=== PATIENT | female | born 1950 | race Caucasian/White ===

== ENCOUNTER 2019-03-06 16:10 | Emergency (ER) | payer OTHER ==
[2019-03-06] MEDS ORDERED: LIDOCAINE 1% W/EPI 1:100,000 MDV 20 ML VIAL ONE (16:37)
--- NOTE | 2019-03-06 16:58 | EDPHYS ---
Physician Documentation [facility] Name: Trina Diane Age: 68 yrs Sex: Female : 1950 Arrival Date: 03/06/2019 Time: 16:12 Bed 20 Private MD: Sabrina Emmanuel C ED Physician Ryland Rodriguez HPI: 03/06 16:55 This 68 yrs old Female presents to ER via Ambulatory with complaints of Thumb nh laceration. 16:55 Onset: The symptoms/episode began/occurred acutely, just prior to arrival. Associated nh signs and symptoms: The patient has no apparent associated signs or symptoms. The patient has not experienced similar symptoms in the past. The patient has not recently seen a physician. Patient sustained laceration to left thumb just prior to arrival while chopping vegetables. Bleeding controlled. Historical: - Allergies: 16:21 Tetanus Vaccines \T\ Toxoid; sv - PMHx: 16:21 None; sv - PSHx: 16:21 Hysterectomy; sv - Immunization history:: Last tetanus immunization: allergic to medication . - Social history:: Smoking status: Patient/guardian denies using tobacco. - Ebola Screening: : Patient negative for fever greater than or equal to 101.5 degrees Fahrenheit, and additional compatible Ebola Virus Disease symptoms Patient denies exposure to infectious person Patient denies travel to an Ebola-affected area in the 21 days before illness onset No symptoms or risks identified at this time. ROS: 16:55 Constitutional: Negative for fever, chills, and weight loss, Eyes: Negative for injury, nh pain, redness, and discharge, ENT: Negative for injury, pain, and discharge, Neck: Negative for injury, pain, and swelling, Cardiovascular: Negative for chest pain, palpitations, and edema, Respiratory: Negative for shortness of breath, cough, wheezing, and pleuritic chest pain, Abdomen/GI: Negative for abdominal pain, nausea, vomiting, diarrhea, and constipation, Back: Negative for injury and pain, : Negative for injury, bleeding, discharge, and swelling, MS/Extremity: Negative for injury and deformity, Neuro: Negative for headache, weakness, numbness, tingling, and seizure, Psych: Negative for depression, anxiety, suicide ideation, homicidal ideation, and hallucinations. 16:55 Skin: Positive for laceration(s). Exam: 16:55 Constitutional: This is a well developed, well nourished patient who is awake, alert, nh and in no acute distress. Head/Face: Normocephalic, atraumatic. Eyes: Pupils equal round and reactive to light, extra-ocular motions intact. Lids and lashes normal. Conjunctiva and sclera are non-icteric and not injected. Cornea within normal limits. Periorbital areas with no swelling, redness, or edema. ENT: Nares patent. No nasal discharge, no septal abnormalities noted. Tympanic membranes are normal and external auditory canals are clear. Oropharynx with no redness, swelling, or masses, exudates, or evidence of obstruction, uvula midline. Mucous membranes moist. Neck: Trachea midline, no thyromegaly or masses palpated, and no cervical lymphadenopathy. Supple, full range of motion without nuchal rigidity, or vertebral point tenderness. No Meningismus. Chest/axilla: Normal chest wall appearance and motion. Nontender with no deformity. No lesions are appreciated. Cardiovascular: Regular rate and rhythm with a normal S1 and S2. No gallops, murmurs, or rubs. Normal PMI, no JVD. No pulse deficits. Respiratory: Lungs have equal breath sounds bilaterally, clear to auscultation and percussion. No rales, rhonchi or wheezes noted. No increased work of breathing, no retractions or nasal flaring. Abdomen/GI: Soft, non-tender, with normal bowel sounds. No distension or tympany. No guarding or rebound. No evidence of tenderness throughout. Back: No spinal tenderness. No costovertebral tenderness. Full range of motion. MS/ Extremity: Pulses equal, no cyanosis. Neurovascular intact. Full, normal range of motion. Neuro: Awake and alert, GCS 15, oriented to person, place, time, and situation. Cranial nerves II-XII grossly intact. Motor strength 5/5 in all extremities. Sensory grossly intact. Cerebellar exam normal. Normal gait. 16:55 Skin: injury, laceration(s), the wound is approximately 1.5 cm(s), of the left thumb. Vital Signs: 16:22 BP 145 / 95; Pulse 90; Resp 18; Temp 98.4; Pulse Ox 96% ; Weight 93.89 kg; Height 5 ft. sv 8 in. (172.72 cm); Pain 2/10; 16:22 Body Mass Index 31.47 (93.89 kg, 172.72 cm) sv Laceration: 16:55 Wound Repair of 1.5cm ( 0.6in ) subcutaneous laceration to left thumb. Distal nh neuro/vascular/tendon intact. Anesthesia: Local anesthetic administered with 1 mls of 1% lidocaine w/ Epi. Wound prep: Moderate cleansing with betadine. Skin closed with 3 5-0 Prolene using interrupted sutures and sterile technique. Patient tolerated well. MDM: 16:24 Patient medically screened. nh 16:55 Data reviewed: vital signs, nurses notes, I have discussed the patient's in presentation/case with the attending Emergency Department Physician; and as a result, I will discharge patient. Counseling: I had a detailed discussion with the patient and/or guardian regarding: the historical points, exam findings, and any diagnostic results supporting the discharge/admit diagnosis, the need for outpatient follow up, to return to the emergency department if symptoms worsen or persist or if there are any questions or concerns that arise at home. Administered Medications: 16:49 Drug: Lidocaine-Epinephrine -1%: (1:100,000) 1 ml {Note: administered by JOSESITO Minor.} em Volume: 20 ml; Route: Infiltration; 17:02 Follow up: Response: No adverse reaction; Pain is decreased em Disposition: 03/07 07:20 Co-signature as Attending Physician, Ryland Rodriguez MD I agree with the assessment and kdr plan of care. Disposition: 03/06/19 16:57 Discharged to Home. Impression: Laceration without foreign body of left thumb with damage to nail. - Condition is Stable. - Discharge Instructions: Sutured Wound Care. - Prescriptions for Bactrim DS 800- 160 mg Oral Tablet - take 1 tablet by ORAL route every 12 hours for 10 days; 20 tablet. - Medication Reconciliation Form, Thank You Letter, Antibiotic Education, Prescription Opioid Use form. - Follow up: Private Physician; When: 2 - 3 days; Reason: Recheck today's complaints. - Problem is new. - Symptoms are unchanged. Signatures: Nevaeh Ugarte RN RN sv Rittger, Kevin, MD MD [facility] Mily Muniz, CAREER TRANSITION SPECIALIST CAREER TRANSITION SPECIALIST Porfirio Crenshaw, DYE FEEDER DYE FEEDER em Corrections: (The following items were deleted from the chart) 03/06 17:04 16:57 03/06/2019 16:57 Discharged to Home. Impression: Laceration without foreign body em of left thumb with damage to nail. Condition is Stable. Forms are Medication Reconciliation Form, Thank You Letter, Antibiotic Education, Prescription Opioid Use. Follow up: Private Physician; When: 2 - 3 days; Reason: Recheck today's complaints. Problem is new. Symptoms are unchanged. nh
--- NOTE | 2019-03-06 16:58 | ER ---
Nurse's Notes [facility] Name: Trina Diane Age: 68 yrs Sex: Female : 1950 Arrival Date: 03/06/2019 Time: 16:12 Bed 20 Private MD: Sabrina Emmanuel C Diagnosis: Laceration without foreign body of left thumb with damage to nail Presentation: 03/06 16:21 Presenting complaint: Patient states: left thumb laceration happened today while sv cutting corn. Transition of care: patient was not received from another setting of care. Onset of symptoms was March 06, 2019. Risk Assessment: Do you want to hurt yourself or someone else? Patient reports no desire to harm self or others. Care prior to arrival: None. 16:21 Method Of Arrival: Ambulatory sv 16:21 Acuity: ANNA 4 sv 16:30 Initial Sepsis Screen: Does the patient meet any 2 criteria? No. Patient's initial em sepsis screen is negative. Does the patient have a suspected source of infection? Yes: Skin breakdown/wound. Triage Assessment: 16:23 General: Appears in no apparent distress. uncomfortable, well developed, Behavior is sv calm, cooperative, appropriate for age. Pain: Complains of pain in left thumb Pain currently is 2 out of 10 on a pain scale. Neuro: Level of Consciousness is awake, alert, obeys commands, Oriented to person, place, time, situation, Moves all extremities. Respiratory: Respiratory effort is even, unlabored, Respiratory pattern is regular, symmetrical. Injury Description: Laceration sustained to left thumb was sustained less than 30 minutes ago. Historical: - Allergies: 16:21 Tetanus Vaccines \T\ Toxoid; sv - PMHx: 16:21 None; sv - PSHx: 16:21 Hysterectomy; sv - Immunization history:: Last tetanus immunization: allergic to medication . - Social history:: Smoking status: Patient/guardian denies using tobacco. - Ebola Screening: : Patient negative for fever greater than or equal to 101.5 degrees Fahrenheit, and additional compatible Ebola Virus Disease symptoms Patient denies exposure to infectious person Patient denies travel to an Ebola-affected area in the 21 days before illness onset No symptoms or risks identified at this time. Screenin:30 Abuse screen: Denies threats or abuse. Nutritional screening: No deficits noted. em Tuberculosis screening: No symptoms or risk factors identified. Fall Risk None identified. Assessment: 16:39 General: Appears in no apparent distress. comfortable, well groomed, well developed, em well nourished, Behavior is calm, cooperative. Pain: Complains of pain in left thumb Pain currently is 2 out of 10 on a pain scale. Pain began suddenly. Neuro: Level of Consciousness is awake, alert, obeys commands, Oriented to person, place, time, situation, Appropriate for age. Cardiovascular: Capillary refill < 3 seconds Patient's skin is warm and dry. Respiratory: Airway is patent Respiratory effort is even, unlabored, Respiratory pattern is regular, symmetrical. Derm: Wound noted left thumb Wound is cut left thumb while cutting corn. Injury Description: Laceration sustained to left thumb is clean, 0.5 to 2.5 cm long, not bleeding, was sustained 30-60 minutes ago. a small amount of bleeding noted at this time. Vital Signs: 16:22 BP 145 / 95; Pulse 90; Resp 18; Temp 98.4; Pulse Ox 96% ; Weight 93.89 kg; Height 5 ft. sv 8 in. (172.72 cm); Pain 2/10; 16:22 Body Mass Index 31.47 (93.89 kg, 172.72 cm) sv ED Course: 16:12 Patient arrived in ED. mr 16:12 Sabrina Emmanuel MD is Private Physician. mr 16:21 Triage completed. sv 16:22 Arm band placed on. sv 16:24 Mily Muniz FNP is PHCP. nh 16:24 Ryland Rodriguez MD is Attending Physician. nh 16:30 Patient has correct armband on for positive identification. Bed in low position. Call em light in reach. 16:34 Porfirio Olson LVN is Primary Nurse. em 17:02 Assist provider with laceration repair on left thumb that was 2.5 cm. or less using em sutures. Set up tray. Performed by Mily CORNELL Dressed with band aid, Patient tolerated well. Patient did not have IV access during this emergency room visit. Administered Medications: 16:49 Drug: Lidocaine-Epinephrine -1%: (1:100,000) 1 ml {Note: administered by JOSESITO Minor.} em Volume: 20 ml; Route: Infiltration; 17:02 Follow up: Response: No adverse reaction; Pain is decreased em Outcome: 16:57 Discharge ordered by . ny 17:02 Discharged to home ambulatory. em 17:02 Condition: good 17:02 Discharge instructions given to patient, family, Instructed on discharge instructions, follow up and referral plans. medication usage, wound care, Demonstrated understanding of instructions, follow-up care, medications, wound care, Prescriptions given X 1. 17:04 Patient left the ED. em Signatures: Nevaeh Ugarte RN RN Mily Muniz, SUPERVISOR TREE TRIMMING SUPERVISOR TREE TRIMMING ny Jacob, Ely OlsonPorfirio, COMPLEX DIRECTOR COMPLEX DIRECTOR em Corrections: (The following items were deleted from the chart) 16:23 16:22 Resp 18bpm; Temp 98.4F; 93.89 kg; Height 5 ft. 8 in.; BMI: 31.4; Pain 2/10; sv sv 16:23 16:22 Pulse 90bpm; Resp 18bpm; Pulse Ox 96%; Temp 98.4F; 93.89 kg; Height 5 ft. 8 in.; sv BMI: 31.4; Pain 2/10; sv 16:24 16:22 Pulse 90bpm; Resp 18bpm; Pulse Ox 96%; Temp 98.4F; 93.89 kg; Height 5 ft. 8 in.; sv BMI: 31.4; Pain 2/10; sv 17:06 17:02 No provider procedures requiring assistance completed. em em
[2019-03-06 17:09] VITALS: BP 145/95; TEMP 98.4; O2SAT 96
== END 2019-03-06 17:04 | disposition home or self-care (01) ==
LOC: ER 16:10
PROC: 0JQK0ZZ Repair Left Hand Subcutaneous Tissue and Fascia, Open Approach (ICD-10-PCS; principal; 2019-03-06)
DX: S61.112A Laceration without foreign body of left thumb with damage to nail, initial encounter (principal); W45.8XXA Other foreign body or object entering through skin, initial encounter; Y93.G3 Activity, cooking and baking; Y92.9 Unspecified place or not applicable; Z88.7 Allergy status to serum and vaccine
CPT/HCPCS: 99283

== ENCOUNTER 2019-06-18 18:03 | Emergency (ER) | payer OTHER ==
[2019-06-18 18:16] LABS: Absolute Lymphocytes (CBC) 1.4 K/uL (0.7-4.9); Basophils % 0.7 % (0-1.3); Hematocrit 45.5 % (36.0-45.0); Lymphocytes % 12.8 % (15.3-44.8); MPV 9.4 fL (7.6-11.3)
[2019-06-18 18:19] LABS: Protime INR 1.08
[2019-06-18 18:35] LABS: ALT/SGPT 24 U/L (12-78); AST/SGOT 16 U/L (15-37); Albumin 3.7 g/dL (3.4-5.0); Alkaline Phosphatase 98 U/L (45-117); BUN Blood Urea Nitrogen 15 mg/dL (7-18); Bicarbonate 29 mmol/L (21-32); Bilirubin Direct 0.1 mg/dL (0-0.2); Bilirubin Total 0.4 mg/dL (0.2-1.0); Glucose Level 98 mg/dL (74-106); NT PRO-BNP 457 pg/mL (<125); Potassium 3.3 mmol/L (3.5-5.1); Protein, Total 7.6 g/dL (6.4-8.2); Sodium Level 140 mmol/L (136-145); Troponin (Emerg Dept Use Only) < 0.02 ng/mL (0.0-0.045)
--- NOTE | 2019-06-18 19:05 | RAD REPORT ---
EXAM DESCRIPTION: RAD - Chest Single View - 06/18/2019 6:09 pm CLINICAL HISTORY: PALPITATIONS, shortness of breath COMPARISON: CHEST PA AND LAT 2 VIEW dated 05/19/2008 TECHNIQUE: AP portable chest image was obtained 06/18/2019 6:09 pm . FINDINGS: Lungs are clear. Heart and vasculature are normal. No measurable pleural effusion and no p neumothorax. No acute bony abnormality seen. No acute aortic findings suspected. IMPRESSION: No acute cardiopulmonary process.
[2019-06-18] MEDS ORDERED: POTASSIUM 25 MEQ EFFERV TAB ONE (20:15)
--- NOTE | 2019-06-18 20:48 | ER ---
Nurse's Notes [facility] Name: Trina Diane Age: 69 yrs Sex: Female : 1950 Arrival Date: 06/18/2019 Time: 17:45 Bed 3 Private MD: Diagnosis: Supraventricular tachycardia Presentation: 06/17 17:40 Chief complaint: Patient states: has been taking cold medication for past couple days, iw this morning woke up with palpitations, was seen at Dr. Emmanuel's office and sent to ER for evaluation for HR over 150. Risk Assessment: Do you want to hurt yourself or someone else? Patient reports no desire to harm self or others. 17:40 Method Of Arrival: Wheelchair iw 17:40 Acuity: ANNA 2 iw 18:54 Coronavirus screen: The patient has NOT traveled to a country currently being monitored jl7 by the [facility] within the last 14 days. Proceed with normal triage procedures. Ebola Screen: No symptoms or risks identified at this time. Initial Sepsis Screen: Does the patient meet any 2 criteria? No. Patient's initial sepsis screen is negative. Does the patient have a suspected source of infection? No. Patient's initial sepsis screen is negative. Onset of symptoms was June 18, 2019. Care prior to arrival: None. Historical: - Allergies: 17:46 Tetanus Vaccines \T\ Toxoid; iw - Home Meds: 17:46 Synthroid 300 mcg Oral tab 1 tab once daily [Active]; iw - PMHx: 17:46 Hypothyroidism; iw - PSHx: 17:46 Hysterectomy; iw - Immunization history:: Adult Immunizations up to date. - Social history:: Smoking status: Patient denies any tobacco usage or history of. Screenin:02 Abuse screen: Denies threats or abuse. Denies injuries from another. Nutritional jl7 screening: No deficits noted. Tuberculosis screening: No symptoms or risk factors identified. Fall Risk None identified. Assessment: 18:02 General: Appears in no apparent distress. uncomfortable, Behavior is calm, cooperative, jl7 appropriate for age. Pain: Denies pain. Neuro: Level of Consciousness is awake, alert, obeys commands, Oriented to person, place, time, situation. Cardiovascular: Reports palpitations, Patient's skin is warm and dry. Rhythm is SVT. Respiratory: Airway is patent Respiratory effort is even, unlabored, Respiratory pattern is regular, symmetrical. Derm: Skin is pink, warm \T\ dry. 19:13 Reassessment: Patient appears in no apparent distress at this time. Patient denies pain jd3 at this time. Patient states feeling better. Patient states symptoms have improved. General: Appears in no apparent distress. comfortable, well groomed, Behavior is calm, cooperative, appropriate for age. Pain: Denies pain. Neuro: Level of Consciousness is awake, alert, obeys commands, Oriented to person, place, time, situation. Cardiovascular: Heart tones S1 S2 present Capillary refill < 3 seconds in bilateral Patient's skin is warm and dry. Rhythm is sinus rhythm. Respiratory: Airway is patent Respiratory effort is even, unlabored, Respiratory pattern is regular, symmetrical, Breath sounds are clear bilaterally. GI: Abdomen is flat, non-distended, Bowel sounds present X 4 quads. : No deficits noted. No signs and/or symptoms were reported regarding the genitourinary system. EENT: No deficits noted. No signs and/or symptoms were reported regarding the EENT system. Derm: Skin is intact, is healthy with good turgor, Skin is dry, Skin is normal. Musculoskeletal: Circulation, motion, and sensation intact. Range of motion: intact in all extremities. 20:30 Reassessment: Patient appears in no apparent distress at this time. No changes from jd3 previously documented assessment. Patient and/or family updated on plan of care and expected duration. Pain level reassessed. Patient is alert, oriented x 3, equal unlabored respirations, skin warm/dry/pink. awaiting results of second troponin and disposition. Patient denies pain at this time. 21:11 Reassessment: Patient appears in no apparent distress at this time. No changes from jd3 previously documented assessment. Patient and/or family updated on plan of care and expected duration. Pain level reassessed. Patient is alert, oriented x 3, equal unlabored respirations, skin warm/dry/pink. verbalized understanding of discharge. even and steady gait. Patient denies pain at this time. Vital Signs: 17:46 BP 170 / 115; Pulse 158; Resp 20 S; Pulse Ox 100% on R/A; iw 18:52 BP 158 / 80; Pulse 84; Resp 16 S; Pulse Ox 100% on R/A; jl7 19:30 BP 134 / 69; Pulse 87; Resp 17; Pulse Ox 100% on R/A; Pain 0/10; jd3 19:58 Temp 98.7(TE); rv 20:31 BP 139 / 70; Pulse 88; Resp 18; Pulse Ox 100% on R/A; Pain 0/10; jd3 21:13 BP 110 / 57; Pulse 89; Resp 15; Temp 98.8; Pulse Ox 100% on R/A; Pain 0/10; jd3 ED Course: 17:45 Patient arrived in ED. iw 17:45 Patient has correct armband on for positive identification. Placed in gown. Bed in low jl7 position. Call light in reach. Side rails up X 1. steel chipper on. Pulse ox on. NIBP on. 17:52 Triage completed. iw 17:53 Ryland Rodriguez MD is Attending Physician. kdr 17:57 David Smalls RN is Primary Nurse. jl7 18:01 Arm band placed on right wrist. jl7 18:04 Warm blanket given. jl7 18:04 Initial lab(s) drawn, by me, sent to lab. Inserted saline lock: 18 gauge in left jl7 antecubital area, using aseptic technique. Blood collected. 18:10 XRAY Chest (1 view) In Process Unspecified. EDMS 20:46 Tyrell Emmanuel MD is Referral Physician. tw4 21:14 No provider procedures requiring assistance completed. IV discontinued, No jd3 redness/swelling at site. Pressure dressing applied. Administered Medications: 18:04 Drug: NS 0.9% 1000 ml Route: IV; Rate: 1 bolus; Site: left antecubital; jl7 18:50 Follow up: Response: No adverse reaction; IV Status: Completed infusion; IV Intake: jl7 1000ml 20:14 Drug: Potassium Effervescent Tablet 25 mEq Route: PO; jd3 20:27 Follow up: Response: No adverse reaction jd3 Intake: 18:50 IV: 1000ml; Total: 1000ml. jl7 Outcome: 20:47 Discharge ordered by . tw4 21:15 Discharged to home ambulatory, with family. jd3 21:15 Condition: stable 21:15 Discharge instructions given to patient, Instructed on discharge instructions, follow up and referral plans. Demonstrated understanding of instructions, follow-up care. 21:17 Patient left the ED. jd3 Signatures: Dispatcher [employer] EDMS Ryland Rodriguez MD MD kdr Savannah Eastman RN ADRAIN iw David Smalls RN RN jl7 Salazar Cast RN RN jd3 Franklyn House MD MD tw4 Reddy Ward RN RN rv
--- NOTE | 2019-06-18 20:48 | EDPHYS ---
Physician Documentation [facility] Name: Trina Diane Age: 69 yrs Sex: Female : 1950 Arrival Date: 06/18/2019 Time: 17:45 Bed 3 Private MD: ED Physician Ryland Rodriguez HPI: 06/17 18:24 This 69 yrs old Female presents to ER via Wheelchair with complaints of kdr Palpitations. 18:24 The patient presents with a history of heart racing. Context: The symptoms occur at kdr rest. Onset: The symptoms/episode began/occurred suddenly, this morning. Duration: The patient or guardian reports a single episode, that is still ongoing. Modifying factors: The symptoms are aggravated by nothing. The symptoms are alleviated by nothing. Associated signs and symptoms: The patient has no apparent associated signs or symptoms. Severity of symptoms: At their worst the symptoms were moderate in the emergency department the symptoms are unchanged. The patient has not experienced similar symptoms in the past. The patient was sent from Dr. Emmanuel's office. The patient had been taking OTC decongestants - Sudafed (pseudoephedrine). Her last dose was this morning. Historical: - Allergies: 17:46 Tetanus Vaccines \T\ Toxoid; iw - Home Meds: 17:46 Synthroid 300 mcg Oral tab 1 tab once daily [Active]; iw - PMHx: 17:46 Hypothyroidism; iw - PSHx: 17:46 Hysterectomy; iw - Immunization history:: Adult Immunizations up to date. - Social history:: Smoking status: Patient denies any tobacco usage or history of. ROS: 18:26 Constitutional: Negative for fever, chills, and weight loss, Eyes: Negative for injury, kdr pain, redness, and discharge, ENT: Negative for injury, pain, and discharge, Neck: Negative for injury, pain, and swelling, Respiratory: Negative for shortness of breath, cough, wheezing, and pleuritic chest pain, Abdomen/GI: Negative for abdominal pain, nausea, vomiting, diarrhea, and constipation, Back: Negative for injury and pain, : Negative for injury, bleeding, discharge, and swelling, MS/Extremity: Negative for injury and deformity, Skin: Negative for injury, rash, and discoloration, Neuro: Negative for headache, weakness, numbness, tingling, and seizure activity. Psych: Negative for depression, anxiety, suicide ideation, homicidal ideation, and hallucinations, Allergy/Immunology: Negative for hives, rash, and allergies, Endocrine: Negative for neck swelling, polydipsia, polyuria, polyphagia, and marked weight changes, Hematologic/Lymphatic: Negative for swollen nodes, abnormal bleeding, and unusual bruising. 18:26 Cardiovascular: Positive for palpitations, Negative for chest pain, edema, orthopnea, paroxysmal nocturnal dyspnea. Exam: 18:26 Constitutional: This is a well developed, well nourished patient who is awake, alert, kdr and in no acute distress. Head/Face: Normocephalic, atraumatic. Eyes: Pupils equal round and reactive to light, extra-ocular motions intact. Lids and lashes normal. Conjunctiva and sclera are non-icteric and not injected. Cornea within normal limits. Periorbital areas with no swelling, redness, or edema. Neck: Trachea midline, no thyromegaly or masses palpated, and no cervical lymphadenopathy. Supple, full range of motion without nuchal rigidity, or vertebral point tenderness. No Meningismus. Chest/axilla: Normal chest wall appearance and motion. Nontender with no deformity. No lesions are appreciated. Respiratory: Lungs have equal breath sounds bilaterally, clear to auscultation and percussion. No rales, rhonchi or wheezes noted. No increased work of breathing, no retractions or nasal flaring. Abdomen/GI: Soft, non-tender, with normal bowel sounds. No distension or tympany. No guarding or rebound. No evidence of tenderness throughout. Back: No spinal tenderness. No costovertebral tenderness. Full range of motion. Skin: Warm, dry with normal turgor. Normal color with no rashes, no lesions, and no evidence of cellulitis. MS/ Extremity: Pulses equal, no cyanosis. Neurovascular intact. Full, normal range of motion. Neuro: Awake and alert, GCS 15, oriented to person, place, time, and situation. Cranial nerves II-XII grossly intact. Motor strength 5/5 in all extremities. Sensory grossly intact. Cerebellar exam normal. Normal gait. Psych: Awake, alert, with orientation to person, place and time. Behavior, mood, and affect are within normal limits. 18:26 Cardiovascular: Rate: tachycardic, actual rate is 150 bpm, Rhythm: regular, Pulses: no pulse deficits are appreciated, Heart sounds: normal, Edema: is not appreciated. Vital Signs: 17:46 BP 170 / 115; Pulse 158; Resp 20 S; Pulse Ox 100% on R/A; iw 18:52 BP 158 / 80; Pulse 84; Resp 16 S; Pulse Ox 100% on R/A; jl7 19:30 BP 134 / 69; Pulse 87; Resp 17; Pulse Ox 100% on R/A; Pain 0/10; jd3 19:58 Temp 98.7(TE); rv 20:31 BP 139 / 70; Pulse 88; Resp 18; Pulse Ox 100% on R/A; Pain 0/10; jd3 21:13 BP 110 / 57; Pulse 89; Resp 15; Temp 98.8; Pulse Ox 100% on R/A; Pain 0/10; jd3 MDM: 18:26 Data reviewed: vital signs, nurses notes. kdr 19:23 Patient medically screened. tw4 06/17 17:54 Order name: Basic Metabolic Panel [facility] / 17:54 Order name: CBC with Diff [facility] 06/17 17:54 Order name: LFT's kdr / 17:54 Order name: Magnesium kdr 06/17 17:54 Order name: NT PRO-BNP [facility] / 17:54 Order name: PT-INR kdr / 17:54 Order name: Troponin (emerg Dept Use Only) kdr / 17:54 Order name: XRAY Chest (1 view) kdr / 17:54 Order name: EKG; Complete Time: 18:08 kdr / 17:54 Order name: Cardiac monitoring; Complete Time: 17:57 kdr / 17:54 Order name: EKG - Nurse/Tech; Complete Time: 17:57 kdr / 19:53 Order name: Troponin (emerg Dept Use Only) jd3 03/ 17:54 Order name: IV Saline Lock; Complete Time: 17:57 kdr / 17:54 Order name: Labs collected and sent; Complete Time: 17:57 kdr / 17:54 Order name: O2 Per Protocol; Complete Time: 17:57 kdr / 17:54 Order name: O2 Sat Monitoring; Complete Time: 17:57 kdr Administered Medications: 18:04 Drug: NS 0.9% 1000 ml Route: IV; Rate: 1 bolus; Site: left antecubital; jl7 18:50 Follow up: Response: No adverse reaction; IV Status: Completed infusion; IV Intake: jl7 1000ml 20:14 Drug: Potassium Effervescent Tablet 25 mEq Route: PO; jd3 20:27 Follow up: Response: No adverse reaction jd3 Disposition: 06/18/19 20:47 Discharged to Home. Impression: Supraventricular tachycardia. - Condition is Stable. - Discharge Instructions: Holter Monitoring, Palpitations, Paroxysmal Supraventricular Tachycardia, Hypokalemia. - Medication Reconciliation Form, Thank You Letter, Antibiotic Education, Prescription Opioid Use form. - Follow up: Tyrell Emmanuel MD; When: Upon discharge from the Emergency Department; Reason: Recheck today's complaints, Continuance of care, Re-evaluation by your physician. - Problem is new. - Symptoms have improved. Signatures: Dispatcher [employer] EDMS Ryland Rodriguez MD MD kdr Savannah Eastman RN RN iw David Smalls RN RN jl7 Salazar Cast RN RN jFranklyn Walden MD MD tw4 Corrections: (The following items were deleted from the chart) 20:47 20:47 06/18/2019 20:47 Discharged to Home. Impression: Supraventricular tachycardia. tw4 Condition is Stable. Forms are Medication Reconciliation Form, Thank You Letter, Antibiotic Education, Prescription Opioid Use. Follow up: Tyrell Emmanuel; When: Upon discharge from the Emergency Department; Reason: Recheck today's complaints, Continuance of care, Re-evaluation by your physician. tw4 21:17 20:47 06/18/2019 20:47 Discharged to Home. Impression: Supraventricular tachycardia. jd3 Condition is Stable. Forms are Medication Reconciliation Form, Thank You Letter, Antibiotic Education, Prescription Opioid Use. Follow up: Tyrell Emmanuel; When: Upon discharge from the Emergency Department; Reason: Recheck today's complaints, Continuance of care, Re-evaluation by your physician. Problem is new. Symptoms have improved. tw4
[2019-06-18 21:35] VITALS: O2SAT 100
[2019-06-18 21:38] VITALS: BP 110/57; TEMP 98.8
--- NOTE | 2019-06-19 13:45 | EKG ---
Test Date: 2019-06-18 Test Time: 17:46:27 First Assistant: RORY MEASUREMENT RESULTS: Intervals: Rate: 158 HI: QRSD: 66 QT: 300 QTc: 486 Gantt: P: HI: QRS: 21 T: 60 INTERPRETIVE STATEMENTS: Sinus tachycardia with occasional premature ventricular complexes Anterior infarct, age undetermined Abnormal ECG Compared to ECG 01/17/2011 10:02:38 Ventricular premature complex(es) now present Myocardial infarct finding now present Sinus rhythm no longer present Electronically Signed On 06-19-19 13:44:55 SUBCONTRACT MANAGER by Boo Falcon
== END 2019-06-18 21:17 | disposition home or self-care (01) ==
LOC: ER 18:03
DX: I47.1 Supraventricular tachycardia (principal); E03.9 Hypothyroidism, unspecified; Z88.7 Allergy status to serum and vaccine
CPT/HCPCS: 36415; 71045; 80048; 80076; 83735; 83880; 84484; 85025; 85610; 93005; 96360; 99284

== ENCOUNTER 2019-08-29 18:59 | Emergency (ER) | payer OTHER ==
[2019-08-29] MEDS ORDERED: NA CHLORIDE 0.9% 1,000 ML ONE (19:46)
[2019-08-29 19:47] LABS: Basophils % 1.2 % (0-1.3); Hematocrit 44.3 % (36.0-45.0); Lymphocytes % 19.1 % (15.3-44.8); MPV 8.9 fL (7.6-11.3)
[2019-08-29 20:11] LABS: ALT/SGPT 26 U/L (12-78); AST/SGOT 13 U/L (15-37); Albumin 3.4 g/dL (3.4-5.0); Alkaline Phosphatase 89 U/L (45-117); BUN Blood Urea Nitrogen 22 mg/dL (7-18); Bicarbonate 27 mmol/L (21-32); Bilirubin Direct 0.1 mg/dL (0-0.2); Bilirubin Total 0.5 mg/dL (0.2-1.0); Glucose Level 111 mg/dL (74-106); Magnesium 2.1 mg/dL (1.8-2.4); NT PRO-BNP 199 pg/mL (<125); Potassium 3.8 mmol/L (3.5-5.1); Protein, Total 6.8 g/dL (6.4-8.2); Sodium Level 143 mmol/L (136-145); Thyroid Stimulating Hormone 0.005 uIU/mL (0.360-3.740); Troponin (Emerg Dept Use Only) < 0.02 ng/mL (0.0-0.045)
[2019-08-29] MEDS ORDERED: METOPROLOL TAR 50 MG TAB ONE (20:38)
--- NOTE | 2019-08-29 21:08 | RAD REPORT ---
EXAM DESCRIPTION: RAD - Chest Single View - 08/29/2019 7:58 pm CLINICAL HISTORY: PALPITATIONS COMPARISON: Portable chest June 18, 2019 TECHNIQUE: AP portable chest image was obtained 08/29/2019 7:58 pm . FINDINGS: No focal lung parenchymal process. Interstitial pattern matches comparison. Heart and vasc ulature are normal. No measurable pleural effusion and no pneumothorax. No acute bony abnormality see n. No acute aortic findings suspected. IMPRESSION: No acute cardiopulmonary process. No significant interval change.
[2019-08-29 21:12] LABS: Urine Blood 1+ (NEG); Urine Glucose NEGATIVE (NEG); Urine Protein NEGATIVE (NEG); Urine Specific Gravity 1.025 (1.005-1.030)
--- NOTE | 2019-08-29 21:50 | EDPHYS ---
Physician Documentation [facility] Name: Trina Diane Age: 69 yrs Sex: Female : 1950 Arrival Date: 08/29/2019 Time: 19:00 Bed 8 Private MD: ED Physician Tim Cameron HPI: 08/28 19:28 This 69 yrs old Female presents to ER via Wheelchair with complaints of SVT. josette 19:28 The patient presents with a history of heart racing. Context: The symptoms occur at [facility] rest. Onset: The symptoms/episode began/occurred just prior to arrival. Duration: The patient or guardian reports a single episode, that is still ongoing, and unchanged. Modifying factors: The symptoms are aggravated by nothing. The symptoms are alleviated by nothing. Associated signs and symptoms: The patient has no apparent associated signs or symptoms. Severity of symptoms: At their worst the symptoms were mild in the emergency department the symptoms are unchanged. The patient has not experienced similar symptoms in the past. Historical: - Allergies: 19:19 Tetanus Vaccines \T\ Toxoid; ca1 - Home Meds: 19:19 Synthroid 300 mcg Oral tab 1 tab once daily [Active]; ca1 - PMHx: 19:19 Hypothyroidism; ca1 - PSHx: 19:19 Hysterectomy; ca1 - Immunization history:: Adult Immunizations up to date. - Social history:: Smoking status: Patient denies any tobacco usage or history of. - Family history:: not pertinent. ROS: 19:28 Constitutional: Negative for fever, chills, and weight loss, Eyes: Negative for injury, josette pain, redness, and discharge, ENT: Negative for injury, pain, and discharge, Neck: Negative for injury, pain, and swelling, Respiratory: Negative for shortness of breath, cough, wheezing, and pleuritic chest pain, Abdomen/GI: Negative for abdominal pain, nausea, vomiting, diarrhea, and constipation, Back: Negative for injury and pain, : Negative for injury, bleeding, discharge, and swelling, MS/Extremity: Negative for injury and deformity, Skin: Negative for injury, rash, and discoloration, Neuro: Negative for headache, weakness, numbness, tingling, and seizure, Psych: Negative for depression, anxiety, suicide ideation, homicidal ideation, and hallucinations, Allergy/Immunology: Negative for hives, rash, and allergies, Endocrine: Negative for neck swelling, polydipsia, polyuria, polyphagia, and marked weight changes, Hematologic/Lymphatic: Negative for swollen nodes, abnormal bleeding, and unusual bruising. 19:28 Cardiovascular: Positive for palpitations. Exam: 19:28 Constitutional: This is a well developed, well nourished patient who is awake, alert, josette and in no acute distress. Head/Face: Normocephalic, atraumatic. Eyes: Pupils equal round and reactive to light, extra-ocular motions intact. Lids and lashes normal. Conjunctiva and sclera are non-icteric and not injected. Cornea within normal limits. Periorbital areas with no swelling, redness, or edema. ENT: Nares patent. No nasal discharge, no septal abnormalities noted. Tympanic membranes are normal and external auditory canals are clear. Oropharynx with no redness, swelling, or masses, exudates, or evidence of obstruction, uvula midline. Mucous membranes moist. Neck: Trachea midline, no thyromegaly or masses palpated, and no cervical lymphadenopathy. Supple, full range of motion without nuchal rigidity, or vertebral point tenderness. No Meningismus. Chest/axilla: Normal chest wall appearance and motion. Nontender with no deformity. No lesions are appreciated. Respiratory: Lungs have equal breath sounds bilaterally, clear to auscultation and percussion. No rales, rhonchi or wheezes noted. No increased work of breathing, no retractions or nasal flaring. Abdomen/GI: Soft, non-tender, with normal bowel sounds. No distension or tympany. No guarding or rebound. No evidence of tenderness throughout. Back: No spinal tenderness. No costovertebral tenderness. Full range of motion. Female : Normal external genitalia. Skin: Warm, dry with normal turgor. Normal color with no rashes, no lesions, and no evidence of cellulitis. MS/ Extremity: Pulses equal, no cyanosis. Neurovascular intact. Full, normal range of motion. Neuro: Awake and alert, GCS 15, oriented to person, place, time, and situation. Cranial nerves II-XII grossly intact. Motor strength 5/5 in all extremities. Sensory grossly intact. Cerebellar exam normal. Normal gait. Psych: Awake, alert, with orientation to person, place and time. Behavior, mood, and affect are within normal limits. 19:28 Cardiovascular: Rate: tachycardic, Rhythm: regular, Pulses: no pulse deficits are appreciated, Heart sounds: normal, Edema: is not appreciated, JVD: is not appreciated. 19:31 ECG was reviewed by the Attending Physician. josette 21:41 Skin: cellulitis, that is mild, on the left subscapular area. josette Vital Signs: 19:17 BP 152 / 102; Pulse 144; Resp 16 S; Temp 98.6(TE); Pulse Ox 99% on R/A; Weight 92.99 kg ca1 (R); Height 5 ft. 8 in. (172.72 cm) (R); Pain 0/10; 19:58 BP 146 / 84; Pulse 87; Resp 18; Pulse Ox 98% on R/A; Pain 0/10; mg2 20:53 BP 136 / 73; Pulse 71; Resp 18; Pulse Ox 100% on R/A; mg2 19:17 Body Mass Index 31.17 (92.99 kg, 172.72 cm) ca1 MDM: 19:13 Patient medically screened. josette 19:30 Differential diagnosis: arrythmia, dehydration, stress disorder. Data reviewed: vital josette signs, nurses notes, lab test result(s), EKG, radiologic studies, plain films. Data interpreted: business support manager: rate is 144 beats/min. Test interpretation: by ED physician or midlevel provider: ECG, plain radiologic studies. Counseling: I had a detailed discussion with the patient and/or guardian regarding: the historical points, exam findings, and any diagnostic results supporting the discharge/admit diagnosis, lab results, radiology results. 21:41 ED course: discussed follow up dr Emmanuel, decrease Synthroid to 200 mcg daily, add josette bactrim. 08/28 19:28 Order name: Basic Metabolic Panel; Complete Time: 20:23 josette 08/28 19:28 Order name: CBC with Diff; Complete Time: 20:23 josette 08/28 19:28 Order name: LFT's; Complete Time: 20:23 josette 08/28 19:28 Order name: Magnesium; Complete Time: 20:23 josette 08/28 19:28 Order name: NT PRO-BNP; Complete Time: 20:23 josette 08/28 19:28 Order name: Troponin (emerg Dept Use Only); Complete Time: 20:23 [facility] 08/28 19:28 Order name: XRAY Chest (1 view); Complete Time: 21:40 [facility] 08/28 19:28 Order name: EKG; Complete Time: 19:29 [facility] 08/28 19:28 Order name: TSH; Complete Time: 20:23 [facility] 08/28 19:28 Order name: Urine Culture [facility] 08/28 19:28 Order name: D-Dimer; Complete Time: 20:23 [facility] 08/28 20:33 Order name: Urine Dipstick--Ancillary (enter results); Complete Time: 21:40 ar5 08/28 19:28 Order name: Cardiac monitoring; Complete Time: 19:35 [facility] 08/28 19:28 Order name: EKG - Nurse/Tech; Complete Time: 19:35 [facility] 08/28 19:28 Order name: IV Saline Lock; Complete Time: 19:35 [facility] 08/28 19:28 Order name: Labs collected and sent; Complete Time: 19:35 [facility] 08/28 19:28 Order name: O2 Per Protocol; Complete Time: 19:35 [facility] 08/28 19:28 Order name: O2 Sat Monitoring; Complete Time: 19:35 [facility] 08/28 19:28 Order name: Urine Dipstick-Ancillary (obtain specimen); Complete Time: 19:58 josette EC:31 Rate is 140 beats/min. Rhythm is regular. QRS [place] is Normal. [place] interval is normal. josette QRS interval is normal. QT interval is normal. No Q waves. T waves are Normal. No ST changes noted. Clinical impression: Sinus tachycardia and No evidence of ischemia. Interpreted by me. Reviewed by me. Administered Medications: 19:57 Drug: NS 0.9% 1000 ml Route: IV; Rate: 1 bolus; Site: right antecubital; mg2 21:52 Follow up: Response: No adverse reaction; IV Status: Completed infusion; IV Intake: mg2 1000ml 20:38 Drug: Lopressor (metoprolol TARTRATE) 50 mg Route: PO; mg2 21:52 Follow up: Response: No adverse reaction mg2 Disposition: 08/29/19 21:49 Discharged to Home. Impression: Tachycardia, unspecified, Thyrotoxicosis [hyperthyroidism], Cellulitis and acute lymphangitis of trunk - small, left thoracic area. - Condition is Stable. - Discharge Instructions: Cellulitis, Adult, Hyperthyroidism, Cellulitis, Adult, [id number], Sinus Tachycardia. - Prescriptions for Synthroid 200 mcg Oral tablet - take 1 tablet by ORAL route once daily; 20 tablet. Bactrim DS 800- 160 mg Oral Tablet - take 1 tablet by ORAL route every 12 hours for 10 days; 20 tablet. - Medication Reconciliation Form, Thank You Letter, Antibiotic Education, Prescription Opioid Use form. - Follow up: Sabrina Emmanuel MD; When: 2 - 3 days; Reason: Recheck today's complaints, Continuance of care, Re-evaluation by your physician. - Problem is new. - Symptoms have improved. Signatures: Dispatcher [employer] EDPA Tim Cameron MD MD cha Gardose, Michele, RN RN mg2 Smiley Duque RN RN ca1 Corrections: (The following items were deleted from the chart) 22:15 21:49 08/29/2019 21:49 Discharged to Home. Impression: Tachycardia, unspecified; mg2 Thyrotoxicosis [hyperthyroidism]; Cellulitis and acute lymphangitis of trunk - small, left thoracic area. Condition is Stable. Forms are Medication Reconciliation Form, Thank You Letter, Antibiotic Education, Prescription Opioid Use. Follow up: Sabrina Emmanuel; When: 2 - 3 days; Reason: Recheck today's complaints, Continuance of care, Re-evaluation by your physician. Problem is new. Symptoms have improved. josette
--- NOTE | 2019-08-29 21:50 | ER ---
Nurse's Notes [facility] Name: Trina Diane Age: 69 yrs Sex: Female : 1950 Arrival Date: 08/29/2019 Time: 19:00 Bed 8 Private MD: Diagnosis: Tachycardia, unspecified;Thyrotoxicosis [hyperthyroidism];Cellulitis and acute lymphangitis of trunk-small, left thoracic area Presentation: 08/28 19:17 Chief complaint: Patient states: Palpitations started 20 minutes ago HR at home was ca1 159, BP at 150/100. History of SVT. Denies N/V/dizziness/lightheadedness. Denies chest pain, SOB. Coronavirus screen: Proceed with normal triage. Patient denies a cough. Patient denies shortness of breath or difficulty breathing. Patient denies measured and/or subjective temperature greater than 100.4F prior to today's visit. Patient denies travel on a cruise ship or to a country the [facility] currently lists as an affected area. Patient denies contact with known and/or suspected case of COVID-19. Ebola Screen: Patient negative for fever greater than or equal to 101.5 degrees Fahrenheit, and additional compatible Ebola Virus Disease symptoms Patient denies exposure to infectious person. Patient denies travel to an Ebola-affected area in the 21 days before illness onset. No symptoms or risks identified at this time. Initial Sepsis Screen: Does the patient meet any 2 criteria? No. Patient's initial sepsis screen is negative. Does the patient have a suspected source of infection? No. Patient's initial sepsis screen is negative. Risk Assessment: Do you want to hurt yourself or someone else? Patient reports no desire to harm self or others. Onset of symptoms was August 29, 2019. 19:17 Method Of Arrival: Wheelchair ca1 19:17 Acuity: ANNA 2 ca1 Historical: - Allergies: 19:19 Tetanus Vaccines \T\ Toxoid; ca1 - Home Meds: 19:19 Synthroid 300 mcg Oral tab 1 tab once daily [Active]; ca1 - PMHx: 19:19 Hypothyroidism; ca1 - PSHx: 19:19 Hysterectomy; ca1 - Immunization history:: Adult Immunizations up to date. - Social history:: Smoking status: Patient denies any tobacco usage or history of. - Family history:: not pertinent. Screenin:00 Abuse screen: Denies threats or abuse. Denies injuries from another. Nutritional mg2 screening: No deficits noted. Tuberculosis screening: No symptoms or risk factors identified. Fall Risk IV access (20 points). Assessment: 19:58 General: Appears in no apparent distress. comfortable, Behavior is calm, cooperative. mg2 Pain: Denies pain. Neuro: Level of Consciousness is awake, alert, obeys commands, Oriented to person, place, time, situation. Cardiovascular: Capillary refill < 3 seconds Patient's skin is warm and dry. Cardiovascular: Reports None lightheadedness, palpitations. Respiratory: Airway is patent Respiratory effort is even, unlabored, Respiratory pattern is regular, symmetrical. GI: No signs and/or symptoms were reported involving the gastrointestinal system. : No signs and/or symptoms were reported regarding the genitourinary system. EENT: No signs and/or symptoms were reported regarding the EENT system. Derm: Skin is intact, is healthy with good turgor, Skin is pink, warm \T\ dry. normal. Musculoskeletal: Circulation, motion, and sensation intact. Capillary refill < 3 seconds. 20:53 Reassessment: Patient appears in no apparent distress at this time. Patient and/or mg2 family updated on plan of care and expected duration. Pain level reassessed. Patient is alert, oriented x 3, equal unlabored respirations, skin warm/dry/pink. Vital Signs: 19:17 BP 152 / 102; Pulse 144; Resp 16 S; Temp 98.6(TE); Pulse Ox 99% on R/A; Weight 92.99 kg ca1 (R); Height 5 ft. 8 in. (172.72 cm) (R); Pain 0/10; 19:58 BP 146 / 84; Pulse 87; Resp 18; Pulse Ox 98% on R/A; Pain 0/10; mg2 20:53 BP 136 / 73; Pulse 71; Resp 18; Pulse Ox 100% on R/A; mg2 19:17 Body Mass Index 31.17 (92.99 kg, 172.72 cm) ca1 ED Course: 19:00 Patient arrived in ED. as 19:13 Tim Cameron MD is Attending Physician. josette 19:19 Triage completed. ca1 19:19 Arm band placed on right wrist. EKG completed in triage. Results shown to MD. ca1 19:30 Inserted saline lock: 20 gauge in right antecubital area, using aseptic technique. mg2 Blood collected. 19:34 Abad May, RN is Primary Nurse. mg2 19:58 XRAY Chest (1 view) In Process Unspecified. EDMS 19:58 No provider procedures requiring assistance completed. mg2 20:01 Patient has correct armband on for positive identification. classroom monitor on. Pulse mg2 ox on. NIBP on. Door closed. Warm blanket given. 21:47 Sabrina Emmanuel MD is Referral Physician. josette 22:07 IV discontinued, intact, bleeding controlled, No redness/swelling at site. Pressure mg2 dressing applied. Administered Medications: 19:57 Drug: NS 0.9% 1000 ml Route: IV; Rate: 1 bolus; Site: right antecubital; mg2 21:52 Follow up: Response: No adverse reaction; IV Status: Completed infusion; IV Intake: mg2 1000ml 20:38 Drug: Lopressor (metoprolol TARTRATE) 50 mg Route: PO; mg2 21:52 Follow up: Response: No adverse reaction mg2 Intake: 21:52 IV: 1000ml; Total: 1000ml. mg2 Outcome: 21:49 Discharge ordered by . josette 22:08 Discharged to home ambulatory. mg2 22:08 Condition: stable 22:08 Discharge instructions given to patient, Instructed on discharge instructions, follow up and referral plans. medication usage, Demonstrated understanding of instructions, follow-up care, medications, Prescriptions given X 2. 22:15 Patient left the ED. mg2 Signatures: Dispatcher [employer] EDTim Arana MD MD cha Martinez, Amelia as Abad May, RN RN mg2 Smiley Duque RN RN ca1
[2019-08-29 22:54] VITALS: BP 146/84; O2SAT 98
--- NOTE | 2019-08-30 07:12 | EKG ---
Test Date: 2019-08-29 Test Time: 19:15:47 Pound Attendant: TL MEASUREMENT RESULTS: Intervals: Rate: 140 OH: 150 QRSD: 72 QT: 258 QTc: 393 Ailey: P: 41 OH: 150 QRS: -2 T: 1 INTERPRETIVE STATEMENTS: Sinus tachycardia Possible Left atrial enlargement Anterior infarct, age undetermined Abnormal ECG Compared to ECG 06/18/2019 17:46:27 Ventricular premature complex(es) no longer present Myocardial infarct finding still present Electronically Signed On 08-30-19 07:10:50 CDT by Garo Payne
== END 2019-08-29 22:15 | disposition home or self-care (01) ==
LOC: ER 18:59
DX: R00.0 Tachycardia, unspecified (principal); E05.90 Thyrotoxicosis, unspecified without thyrotoxic crisis or storm; L03.319 Cellulitis of trunk, unspecified; L03.329 Acute lymphangitis of trunk, unspecified; Z88.7 Allergy status to serum and vaccine
CPT/HCPCS: 96361; 93005; 87088; 85025; 87086; 80048; 36415; 83735; 85379; 80076; 84443; 81003; 84484; 83880; 71045; 96360; 99284; J7030

== ENCOUNTER 2019-09-18 19:18 | Emergency (ER) | payer OTHER ==
[2019-09-18] MEDS ORDERED: NA CHLORIDE 0.9% 1,000 ML ONE (20:03)
[2019-09-18 20:05] LABS: Absolute Lymphocytes (CBC) 1.3 K/uL (0.7-4.9); Basophils % 0.9 % (0-1.3); Hematocrit 41.9 % (36.0-45.0); Lymphocytes % 21.4 % (15.3-44.8); RBC Red Blood Cell Count 4.73 M/uL (3.86-4.86)
[2019-09-18 20:37] LABS: BUN Blood Urea Nitrogen 22 mg/dL (7-18); Bicarbonate 26 mmol/L (21-32); Glucose Level 131 mg/dL (74-106); Potassium 3.6 mmol/L (3.5-5.1); Sodium Level 145 mmol/L (136-145); Troponin (Emerg Dept Use Only) < 0.02 ng/mL (0.0-0.045)
[2019-09-18 21:02] LABS: Thyroid Stimulating Hormone < 0.005 uIU/mL (0.360-3.740)
--- NOTE | 2019-09-18 21:19 | EDPHYS ---
Physician Documentation [facility] Name: Trina Diane Age: 69 yrs Sex: Female : 1950 Arrival Date: 09/18/2019 Time: 19:20 Bed 3 Private MD: ED Physician Filippo Moctezuma HPI: 09/17 19:44 This 69 yrs old Female presents to ER via Ambulatory with complaints of Rapid pkl Heart Rate. 19:44 The patient presents with a history of heart racing. Context: The symptoms occur at pkl rest. Onset: The symptoms/episode began/occurred just prior to arrival, 1.5 hour(s) ago. H/O Hypothyroidism .Currently taking Levothroid 200 mcg daily. Historical: - Allergies: 19:34 Tetanus Vaccines \T\ Toxoid; ll1 - Home Meds: 19:40 Synthroid 300 mcg Oral tab 1 tab once daily [Active]; rr5 - PMHx: 19:34 Hypothyroidism; ll1 - PSHx: 19:34 Hysterectomy; ll1 - Immunization history:: Adult Immunizations up to date. - Social history:: Smoking status: Patient denies any tobacco usage or history of. Patient/guardian denies using alcohol, street drugs, tobacco products. ROS: 19:44 Eyes: Negative for injury, pain, redness, and discharge, ENT: Negative for injury, pkl pain, and discharge, Neck: Negative for injury, pain, and swelling. 19:44 Cardiovascular: Positive for palpitations. 19:44 Respiratory: Negative for cough, shortness of breath. 19:44 Abdomen/GI: Negative for abdominal pain, nausea, vomiting, and diarrhea. 19:44 Back: Negative for acute changes. 19:44 : Negative for urinary symptoms. 19:44 MS/extremity: Negative for acute changes. 19:44 Skin: Negative for rash. 19:44 Neuro: Negative for altered mental status. Exam: 19:44 Head/Face: Normocephalic, atraumatic. Eyes: Pupils equal round and reactive to light, pkl extra-ocular motions intact. Lids and lashes normal. Conjunctiva and sclera are non-icteric and not injected. Cornea within normal limits. Periorbital areas with no swelling, redness, or edema. ENT: Nares patent. No nasal discharge, no septal abnormalities noted. Tympanic membranes are normal and external auditory canals are clear. Oropharynx with no redness, swelling, or masses, exudates, or evidence of obstruction, uvula midline. Mucous membranes moist. Neck: Trachea midline, no thyromegaly or masses palpated, and no cervical lymphadenopathy. Supple, full range of motion without nuchal rigidity, or vertebral point tenderness. No Meningismus. Chest/axilla: Normal chest wall appearance and motion. Nontender with no deformity. No lesions are appreciated. 19:44 Cardiovascular: Rate: tachycardic, actual rate is 130 bpm, Rhythm: regular. 19:44 Respiratory: the patient does not display signs of respiratory distress, Respirations: normal, Breath sounds: are clear throughout. 19:44 Abdomen/GI: Exam negative for acute changes. 19:44 Back: Exam negative for acute changes. 19:44 : Exam negative for acute changes. 19:44 Musculoskeletal/extremity: Exam is negative for acute changes. 19:44 Skin: Exam negative for rash. 19:44 Neuro: Orientation: is normal, Mentation: is normal, Cranial nerves: grossly normal, Motor: is normal. Vital Signs: 19:32 BP 179 / 104; Pulse 130; Resp 18; Temp 99.4; Pulse Ox 96% ; Pain 0/10; ll1 20:05 BP 158 / 80; Pulse 78; Resp 17; Pulse Ox 99% ; rr5 21:15 BP 128 / 71; Pulse 75; Resp 19; Pulse Ox 99% ; rr5 MDM: 19:35 Patient medically screened. pkl 21:16 Data reviewed: vital signs, nurses notes, lab test result(s), EKG, radiologic studies. pkl ED course: Patient feeling better. Asymptomatic. Discussed lab. results with patient. To follow up with PCP next week. Patient understood instruction. 09/17 19:43 Order name: CBC with Diff; Complete Time: 21:13 pkl 09/17 19:43 Order name: Chem 7; Complete Time: 21:13 pkl 09/17 19:43 Order name: TSH; Complete Time: 21:13 pkl 09/17 19:43 Order name: Troponin (emerg Dept Use Only); Complete Time: 21:13 pkl 09/17 19:44 Order name: EKG; Complete Time: 19:44 pkl Administered Medications: 20:09 Drug: NS 0.9% 1000 ml Route: IV; Rate: 125 ml/hr; Site: right forearm; rr5 21:29 Follow up: Response: No adverse reaction; IV Status: Order to discontinue infusion; IV mg2 Intake: 100ml Disposition: 09/18/19 21:19 Discharged to Home. Impression: Palpitation. - Condition is Stable. - Prescriptions for Carvedilol 12.5 mg Oral Tablet - take 1 tablet by ORAL route 2 times per day with food; 60 tablet. - Medication Reconciliation Form, Thank You Letter, Antibiotic Education, Prescription Opioid Use form. - Follow up: Private Physician; When: 2 - 3 days; Reason: Re-evaluation by your physician. - Problem is new. - Symptoms are resolved. Signatures: Dispatcher [employer] EDMS Filippo Moctezuma MD MD pkl Abad May RN RN mg2 Ricki Tolbert RN RN rr5 Kelly Clay RN RN ll1 Corrections: (The following items were deleted from the chart) 21:32 21:19 09/18/2019 21:19 Discharged to Home. Impression: Palpitation. Condition is mg2 Stable. Forms are Medication Reconciliation Form, Thank You Letter, Antibiotic Education, Prescription Opioid Use. Follow up: Private Physician; When: 2 - 3 days; Reason: Re-evaluation by your physician. Problem is new. Symptoms are resolved. pkl
--- NOTE | 2019-09-18 21:19 | ER ---
Nurse's Notes [facility] Name: Trina Diane Age: 69 yrs Sex: Female : 1950 Arrival Date: 09/18/2019 Time: 19:20 Bed 3 Private MD: Diagnosis: Palpitation Presentation: 09/17 19:32 Chief complaint: Patient states: Fast HR for 1.5 hours. States this is the third time ll1 since June. Coronavirus screen: Proceed with normal triage. Patient denies a cough. Patient denies shortness of breath or difficulty breathing. Patient denies measured and/or subjective temperature greater than 100.4F prior to today's visit. Patient denies travel on a cruise ship or to a country the [facility] currently lists as an affected area. Patient denies contact with known and/or suspected case of COVID-19. Ebola Screen: Patient denies travel to an Ebola-affected area in the 21 days before illness onset. Initial Sepsis Screen: Does the patient meet any 2 criteria? HR > 90 bpm. No. Patient's initial sepsis screen is negative. Risk Assessment: Do you want to hurt yourself or someone else? Patient reports no desire to harm self or others. Onset of symptoms was September 18, 2019. 19:32 Method Of Arrival: Ambulatory ll1 19:32 Acuity: ANNA 2 ll1 19:40 Initial Sepsis Screen: Does the patient have a suspected source of infection? No. rr5 Patient's initial sepsis screen is negative. Historical: - Allergies: 19:34 Tetanus Vaccines \T\ Toxoid; ll1 - Home Meds: 19:40 Synthroid 300 mcg Oral tab 1 tab once daily [Active]; rr5 - PMHx: 19:34 Hypothyroidism; ll1 - PSHx: 19:34 Hysterectomy; ll1 - Immunization history:: Adult Immunizations up to date. - Social history:: Smoking status: Patient denies any tobacco usage or history of. Patient/guardian denies using alcohol, street drugs, tobacco products. Screenin:45 Abuse screen: Denies threats or abuse. Denies injuries from another. Nutritional mg2 screening: No deficits noted. Tuberculosis screening: No symptoms or risk factors identified. 20:45 Fall Risk IV access (20 points). mg2 Assessment: 20:45 General: Appears in no apparent distress. comfortable, Behavior is calm, cooperative. mg2 Pain: Denies pain. Neuro: Level of Consciousness is awake, alert, obeys commands, Oriented to person, place, time, situation. Cardiovascular: Capillary refill < 3 seconds Patient's skin is warm and dry. Cardiovascular: Reports palpitations. Respiratory: Airway is patent Respiratory effort is even, unlabored, Respiratory pattern is regular, symmetrical. GI: No signs and/or symptoms were reported involving the gastrointestinal system. : No signs and/or symptoms were reported regarding the genitourinary system. EENT: No signs and/or symptoms were reported regarding the EENT system. Derm: Skin is intact, is healthy with good turgor, Skin is pink, warm \T\ dry. normal. Musculoskeletal: Circulation, motion, and sensation intact. Capillary refill < 3 seconds. Vital Signs: 19:32 BP 179 / 104; Pulse 130; Resp 18; Temp 99.4; Pulse Ox 96% ; Pain 0/10; ll1 20:05 BP 158 / 80; Pulse 78; Resp 17; Pulse Ox 99% ; rr5 21:15 BP 128 / 71; Pulse 75; Resp 19; Pulse Ox 99% ; rr5 ED Course: 19:20 Patient arrived in ED. cl3 19:31 Ricki Tolbert RN is Primary Nurse. rr5 19:33 Triage completed. ll1 19:34 Arm band placed on Patient placed in an exam room, on a stretcher. ll1 19:35 Filippo Moctezuma MD is Attending Physician. pkl 19:45 gambling monitor on. Pulse ox on. NIBP on. rr5 19:45 Patient has correct armband on for positive identification. Placed in gown. Bed in low rr5 position. Call light in reach. 20:08 Inserted saline lock: by ADRIAN Robison. mg2 21:31 No provider procedures requiring assistance completed. mg2 21:32 IV discontinued, intact, bleeding controlled, No redness/swelling at site. Pressure mg2 dressing applied. Administered Medications: 20:09 Drug: NS 0.9% 1000 ml Route: IV; Rate: 125 ml/hr; Site: right forearm; rr5 21:29 Follow up: Response: No adverse reaction; IV Status: Order to discontinue infusion; IV mg2 Intake: 100ml Intake: 21:29 IV: 100ml; Total: 100ml. mg2 Outcome: 21:19 Discharge ordered by . merly 21:32 Discharged to home ambulatory, with family. mg2 21:32 Condition: stable 21:32 Discharge instructions given to patient, Instructed on discharge instructions, follow up and referral plans. medication usage, Demonstrated understanding of instructions, follow-up care, medications, Prescriptions given X 1. 21:32 Patient left the ED. mg2 Signatures: Filippo Moctezuma MD MD pkl Gardose, Michele RN RN mg2 Ricki Tolbert RN RN rr5 Antoinette Clay3 Kelly Clay RN RN ll1
[2019-09-18 21:48] VITALS: TEMP 99.4
[2019-09-18 21:49] VITALS: O2SAT 99
[2019-09-18 21:51] VITALS: BP 128/71
--- NOTE | 2019-09-21 07:49 | EKG ---
Test Date: 2019-09-18 Test Time: 20:17:07 Service Team Leader: RR MEASUREMENT RESULTS: Intervals: Rate: 74 CO: 148 QRSD: 92 QT: 382 QTc: 424 Fine: P: 5 CO: 148 QRS: -10 T: 21 INTERPRETIVE STATEMENTS: Normal sinus rhythm Cannot rule out Anterior infarct, age undetermined Abnormal ECG Compared to ECG 08/29/2019 19:15:47 Sinus tachycardia no longer present Myocardial infarct finding still present Electronically Signed On 09-21-19 07:45:09 CDT by Garo Payne
== END 2019-09-18 21:32 | disposition home or self-care (01) ==
LOC: ER 19:18
DX: R00.2 Palpitations (principal); Z88.7 Allergy status to serum and vaccine; E03.9 Hypothyroidism, unspecified
CPT/HCPCS: 93005; 85025; 80048; 36415; 84443; 84484; 96360; 99284; J7030

== ENCOUNTER 2019-10-03 19:56 | Emergency (ER) | payer OTHER ==
[2019-10-03] MEDS ORDERED: LIDOCAINE 1% MPF 5 ML VIAL ONE (20:26)
--- NOTE | 2019-10-03 21:11 | ER ---
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 ll1 No active bleeding. Coronavirus screen: Proceed with normal triage. Patient denies a cough. Patient denies shortness of breath or difficulty breathing. Patient denies measured and/or subjective temperature greater than 100.4F prior to today's visit. Patient denies travel on a cruise ship or to a country the [facility] currently lists as an affected area. Patient denies contact with known and/or suspected case of COVID-19. Ebola Screen: Patient denies travel to an Ebola-affected area in the 21 days before illness onset. Initial Sepsis Screen: Does the patient meet any 2 criteria? No. Patient's initial sepsis screen is negative. Risk Assessment: Do you want to hurt yourself or someone else? Patient reports no desire to harm self or others. Onset of symptoms was October 03, 2019. 20:13 Method Of Arrival: Ambulatory ll1 20:13 Acuity: ANNA 4 ll1 20:20 Initial Sepsis Screen: Does the patient have a suspected source of infection? No. wh Patient's initial sepsis screen is negative. Historical: - Allergies: 20:15 Tetanus Vaccines \T\ Toxoid; ll1 - PMHx: 20:15 Hypothyroidism; ll1 - PSHx: 20:15 Hysterectomy; ll1 - Immunization history:: Last tetanus immunization: not immunized for medical reasons, allergic. - Social history:: Smoking status: Patient denies any tobacco usage or history of. Patient/guardian denies using alcohol, street drugs, tobacco products. Screenin:53 Abuse screen: Denies threats or abuse. Denies injuries from another. Nutritional wh screening: No deficits noted. Tuberculosis screening: No symptoms or risk factors identified. Fall Risk None identified. Assessment: 20:25 General: Appears in no apparent distress. Behavior is calm, cooperative, appropriate wh for age. Pain: Complains of pain in left thumb. Neuro: Level of Consciousness is awake, alert, obeys commands, Oriented to person, place, time, situation, Appropriate for age. Cardiovascular: Capillary refill < 3 seconds. Respiratory: Airway is patent Respiratory effort is even, unlabored, Respiratory pattern is regular, symmetrical. GI: Abdomen is flat, non-distended. : No signs and/or symptoms were reported regarding the genitourinary system. EENT: No signs and/or symptoms were reported regarding the EENT system. Derm: Skin is intact, is healthy with good turgor, Skin is pink, warm \T\ dry. normal. Musculoskeletal: Circulation, motion, and sensation intact. Injury Description: Laceration sustained to left thumb is clean, 2.6 to 7.5 cm long, not bleeding. 21:20 Reassessment: Patient appears in no apparent distress at this time. No changes from previously documented assessment. Patient and/or family updated on plan of care and expected duration. Pain level reassessed. Patient is alert, oriented x 3, equal unlabored respirations, skin warm/dry/pink. Vital Signs: 20:13 BP 163 / 91; Pulse 76; Resp 17; Temp 98.6; Pulse Ox 100% ; Pain 0/10; ll1 21:20 BP 156 / 80; Pulse 75; Resp 18; Pulse Ox 99% on R/A; ED Course: 19:59 Patient arrived in ED. mr 20:00 Sabrina Emmanuel MD is Private Physician. mr 20:12 Gadiel Hendricks, TOUR COORDINATOR is PHCP. pm1 20:12 Tim Cameron MD is Attending Physician. pm1 20:14 Triage completed. ll1 20:15 Arm band placed on Patient placed in an exam room, on a stretcher. ll1 20:20 Patient has correct armband on for positive identification. Bed in low position. Call light in reach. Side rails up X 1. Pulse ox on. NIBP on. 20:25 Mau Ramirez is Primary Nurse. 20:30 Wound care: to laceration located on left thumb was cleaned with Hibiclens, Patient wh tolerated well. 20:54 Assist provider with laceration repair on left thumb that was between 2.6 to 7.5 cm wh using sutures. Set up tray. Performed by Gadiel Hendricks TOUR COORDINATOR Dressed with 4X4s, Patient tolerated well. Patient did not have IV access during this emergency room visit. Administered Medications: 20:47 Drug: Lidocaine (1 %) 5 ml {Note: Administered by Provider.} Volume: 5 ml; Route: wh Infiltration; 21:21 Follow up: Response: No adverse reaction Outcome: 21:10 Discharge ordered by MD. pm1 21:21 Discharged to home ambulatory. 21:21 Condition: stable 21:21 Discharge instructions given to patient, Instructed on discharge instructions, follow up and referral plans. wound care, Demonstrated understanding of instructions, follow-up care, wound care. 21:21 Patient left the ED. Signatures: Ely Jacob mr Gadiel Hendricks, TOUR COORDINATOR TOUR COORDINATOR pm1 Mau Ramirez Kelly Clay, RN RN ll1
--- NOTE | 2019-10-03 21:11 | EDPHYS ---
Physician Documentation [facility] Name: Trina Diane Age: 69 yrs Sex: Female : 1950 Arrival Date: 10/03/2019 Time: 19:59 Bed 13 Private MD: Sabrina Emmanuel C ED Physician Tim Cameron HPI: 10/02 20:15 This 69 yrs old Female presents to ER via Ambulatory with complaints of Left pm1 Thumb Laceration. 20:15 The patient or guardian reports a laceration, clean, simple. The complaints affect the pm1 left thumb. Context: The problem was sustained at home, resulted from accidentally cut her finger when opening a box with a knife. Onset: The symptoms/episode began/occurred just prior to arrival. Modifying factors: The symptoms are alleviated by pressure to area, the symptoms are aggravated by movement. Associated signs and symptoms: Pertinent negatives: cyanosis distally, decreased sensation distally, numbness distally, tingling distally. Severity of symptoms: in the emergency department the symptoms have improved. The patient has not recently seen a physician. Historical: - Allergies: 20:15 Tetanus Vaccines \T\ Toxoid; ll1 - PMHx: 20:15 Hypothyroidism; ll1 - PSHx: 20:15 Hysterectomy; ll1 - Immunization history:: Last tetanus immunization: not immunized for medical reasons, allergic. - Social history:: Smoking status: Patient denies any tobacco usage or history of. Patient/guardian denies using alcohol, street drugs, tobacco products. ROS: 20:15 Constitutional: Negative for fever, chills, and weight loss, Cardiovascular: Negative pm1 for chest pain, palpitations, and edema, Respiratory: Negative for shortness of breath, cough, wheezing, and pleuritic chest pain, Abdomen/GI: Negative for abdominal pain, nausea, vomiting, diarrhea, and constipation. 20:15 Neuro: Negative for headache, weakness, numbness, tingling, and seizure. 20:15 MS/extremity: Positive for laceration, of the left thumb. 20:15 Skin: Positive for laceration(s), of the left thumb. Exam: 20:15 Constitutional: This is a well developed, well nourished patient who is awake, alert, pm1 and in no acute distress. Head/Face: Normocephalic, atraumatic. 20:15 Cardiovascular: Exam negative for acute changes, Rate: normal, Rhythm: regular, Pulses: no pulse deficits are appreciated. 20:15 Respiratory: Exam negative for acute changes, respiratory distress, shortness of breath. 20:15 Musculoskeletal/extremity: Extremities: grossly normal except: noted in the left thumb: laceration, There is no evidence of decreased ROM, deformity. 20:15 Skin: Appearance: normal except for affected area, injury, laceration(s), of the dorsal aspect of left thumb. 20:15 Neuro: Exam negative for acute changes, focal neuro deficits, Orientation: is normal, Motor: is normal, moves all fours. Vital Signs: 20:13 BP 163 / 91; Pulse 76; Resp 17; Temp 98.6; Pulse Ox 100% ; Pain 0/10; ll1 21:20 BP 156 / 80; Pulse 75; Resp 18; Pulse Ox 99% on R/A; wh Laceration: 21:08 Wound Repair of 2cm ( 0.8in ) subcutaneous laceration to left thumb. Linear shaped.. pm1 Distal neuro/vascular/tendon intact. Anesthesia: Local anesthetic administered with 1 mls of 1% lidocaine. Wound prep: Extensive cleansing with hibiclenz by nurse, Wound irrigation with saline by me, Wound explored extensively, Copious irrigation. Skin closed with 4 4-0 Prolene using simple sutures and sterile technique. Dressed with Neosporin, 4x4's, Kerlix. Patient tolerated well. MDM: 20:12 Patient medically screened. pm1 20:21 Data reviewed: vital signs. Data interpreted: Pulse oximetry: on room air is 100 %. pm1 Interpretation: normal. 21:09 Counseling: I had a detailed discussion with the patient and/or guardian regarding: the pm1 historical points, exam findings, and any diagnostic results supporting the discharge/admit diagnosis, the need for outpatient follow up, to return to the emergency department if symptoms worsen or persist or if there are any questions or concerns that arise at home. 10/02 20:14 Order name: Prolene, Sutures; Complete Time: 20:25 pm1 10/02 20:14 Order name: Dressing - Wound; Complete Time: 20:25 pm1 10/02 20:14 Order name: Gloves, Sterile; Complete Time: 20:25 pm1 10/02 20:14 Order name: Setup Suture Tray; Complete Time: 20:25 pm1 Administered Medications: 20:47 Drug: Lidocaine (1 %) 5 ml {Note: Administered by Provider.} Volume: 5 ml; Route: wh Infiltration; 21:21 Follow up: Response: No adverse reaction wh Disposition: 10/03 04:21 Co-signature as Attending Physician, Tim Cameron MD I agree with the assessment and josette plan of care. Disposition: 10/03/19 21:10 Discharged to Home. Impression: Laceration without foreign body of left thumb without damage to nail. - Condition is Stable. - Discharge Instructions: Laceration Care, Adult. - Medication Reconciliation Form, Thank You Letter, Antibiotic Education, Prescription Opioid Use form. - Follow up: Emergency Department; When: As needed; Reason: Worsening of condition. Follow up: Private Physician; When: 2 - 3 days; Reason: Recheck today's complaints, Continuance of care, Re-evaluation by your physician. - Problem is new. - Symptoms have improved. Signatures: Tim Cameron MD MD cha Marinas, Patrick, PARTS CLASSIFIER PARTS CLASSIFIER pm1 Mau Ramirez Lynsay RN RN ll1 Corrections: (The following items were deleted from the chart) 10/02 21:21 21:10 10/03/2019 21:10 Discharged to Home. Impression: Laceration without foreign body wh of left thumb without damage to nail. Condition is Stable. Forms are Medication Reconciliation Form, Thank You Letter, Antibiotic Education, Prescription Opioid Use. Follow up: Emergency Department; When: As needed; Reason: Worsening of condition. Follow up: Private Physician; When: 2 - 3 days; Reason: Recheck today's complaints, Continuance of care, Re-evaluation by your physician. Problem is new. Symptoms have improved. pm1
[2019-10-03 21:27] VITALS: TEMP 98.6
[2019-10-03 21:28] VITALS: BP 156/80; O2SAT 99
== END 2019-10-03 21:21 | disposition home or self-care (01) ==
LOC: ER 19:56
PROC: 0JQK0ZZ Repair Left Hand Subcutaneous Tissue and Fascia, Open Approach (ICD-10-PCS; principal; 2019-10-03)
DX: S61.012A Laceration without foreign body of left thumb without damage to nail, initial encounter (principal); W26.0XXA Contact with knife, initial encounter; Y93.89 Activity, other specified; Y92.009 Unspecified place in unspecified non-institutional (private) residence as the place of occurrence of the external cause; Z88.7 Allergy status to serum and vaccine
CPT/HCPCS: 99284

== ENCOUNTER 2021-12-29 09:12 | Emergency (ER) | payer OTHER ==
[2021-12-29 10:41] LABS: Absolute Lymphocytes (CBC) 0.9 K/uL (0.7-4.9); Hematocrit 41.5 % (36.0-45.0); Lymphocytes % 10.9 % (15.3-44.8); MCV 90.5 fL (80-100); MPV 8.7 fL (7.6-11.3); RBC Red Blood Cell Count 4.58 M/uL (3.86-4.86)
[2021-12-29 10:59] LABS: Potassium 3.7 mmol/L (3.5-5.1); Troponin High Sensitivity 13.4 pg/mL (<58.9)
--- NOTE | 2021-12-29 11:21 | RAD REPORT ---
EXAM DESCRIPTION: RAD - Chest Single View - 12/29/2021 10:57 am CLINICAL HISTORY: PALPITATIONS COMPARISON: Portable 08/29/2019 TECHNIQUE: AP portable chest image was obtained 12/29/2021 10:57 am . FINDINGS: No focal mass or consolidation. Interstitial markings are prominent but not substantially different from comparison. The baseline interstitial pattern could mask minimal edema or infiltrate. Trachea is in the midline. Heart and vasculature are normal. No measurable pleural effusion and no pn eumothorax. No acute bony abnormality seen. No acute aortic findings suspected. IMPRESSION: No acute cardiopulmonary process. Patient is stable, baseline interstitial pattern could potentially mask a very mild interstitial jason a or infiltrate.
[2021-12-29 11:58] LABS: Thyroid Stimulating Hormone 29.8 uIU/mL (0.360-3.740)
--- NOTE | 2021-12-29 12:28 | EKG ---
Test Date: 2021-12-29 Test Time: 09:37:05 Cosmetic Surgeon: MARLENA MEASUREMENT RESULTS: Intervals: Rate: 110 VA: 166 QRSD: 76 QT: 330 QTc: 446 [place]: P: 52 VA: 166 QRS: -20 T: 7 INTERPRETIVE STATEMENTS: Sinus tachycardia Possible Left atrial enlargement Septal infarct, age undetermined Abnormal ECG Compared to ECG 09/18/2019 20:17:07 Sinus rhythm no longer present Myocardial infarct finding still present Electronically Signed On 12-29-21 12:27:43 CDT by Garo Payne
--- NOTE | 2021-12-29 14:11 | ER ---
Nurse's Notes [facility] Name: Trina Diane Age: 71 yrs Sex: Female : 1950 Arrival Date: 12/29/2021 Time: 09:17 Bed 15 Private MD: Sabrina Emmanuel C Diagnosis: Palpitations;Tachycardia, unspecified Presentation: 12/29 09:21 Chief complaint: Patient states: started having nausea, dizziness, sweating, rapid HR. kr3 Coronavirus screen: Vaccine status: Patient reports receiving the 2nd dose of the covid vaccine. Client denies travel out of the [place] in the last 14 days. Ebola Screen: Patient denies travel to an Ebola-affected area in the 21 days before illness onset. Initial Sepsis Screen: Does the patient meet any 2 criteria? HR > 90 bpm. No. Patient's initial sepsis screen is negative. Does the patient have a suspected source of infection? No. Patient's initial sepsis screen is negative. Risk Assessment: Do you want to hurt yourself or someone else? Patient reports no desire to harm self or others. Onset of symptoms was December 29, 2021. 09:21 Method Of Arrival: Ambulatory kr3 09:21 Acuity: ANNA 3 kr3 Triage Assessment: 09:28 General: Appears in no apparent distress. comfortable, Behavior is calm, cooperative, kr3 appropriate for age. Pain: Denies pain. Historical: - Allergies: 09:25 No Known Allergies; kr3 - Home Meds: 14:17 Synthroid 300 mcg Oral tab 1 tab once daily [Active]; jg9 - PMHx: 09:25 thyroid cancer; kr3 14:17 Hypothyroidism; jg9 - PSHx: 09:25 removal of thyroid; kr3 - Immunization history:: Adult Immunizations up to date. - Social history:: Smoking status: Patient denies any tobacco usage or history of. Screenin:06 Abuse screen: Denies threats or abuse. Denies injuries from another. Nutritional jg9 screening: No deficits noted. Tuberculosis screening: No symptoms or risk factors identified. Fall Risk None identified. Assessment: 10:07 GI: Abdomen is flat, Reports nausea. jg9 11:00 Reassessment: Patient appears in no apparent distress at this time. No changes from jg9 previously documented assessment. Patient and/or family updated on plan of care and expected duration. Pain level reassessed. Patient is alert, oriented x 3, equal unlabored respirations, skin warm/dry/pink. 12:00 Reassessment: Patient appears in no apparent distress at this time. No changes from jg9 previously documented assessment. Patient and/or family updated on plan of care and expected duration. Pain level reassessed. Patient is alert, oriented x 3, equal unlabored respirations, skin warm/dry/pink. 13:00 Reassessment: No changes from previously documented assessment. Patient and/or family jg9 updated on plan of care and expected duration. Pain level reassessed. Patient is alert, oriented x 3, equal unlabored respirations, skin warm/dry/pink. 14:00 Reassessment: No changes from previously documented assessment. Patient and/or family jg9 updated on plan of care and expected duration. Pain level reassessed. Patient is alert, oriented x 3, equal unlabored respirations, skin warm/dry/pink. Vital Signs: 09:21 BP 145 / 90; Pulse 122; Resp 18; Temp 98.3; Pulse Ox 100% ; Weight 99.79 kg; Height 5 kr3 ft. 6 in. (167.64 cm); Pain 0/10; 10:00 BP 148 / 81; Pulse 103; Resp 17 S; Pulse Ox 95% on R/A; jg9 10:30 BP 143 / 81; Pulse 65; Resp 21 S; Pulse Ox 99% on R/A; jg9 11:00 BP 117 / 67; Pulse 67; Resp 13 S; Pulse Ox 96% on R/A; jg9 11:30 BP 134 / 76; Pulse 63; Resp 17 S; Pulse Ox 97% on R/A; jg9 12:00 BP 132 / 71; Pulse 62; Resp 13 S; Pulse Ox 97% on R/A; jg9 13:00 BP 145 / 81; Pulse 62; Resp 11 S; Pulse Ox 98% on R/A; jg9 14:00 BP 132 / 79; Pulse 67; Resp 10 S; Pulse Ox 100% on R/A; jg9 09:21 Body Mass Index 35.51 (99.79 kg, 167.64 cm) [facility] ED Course: 09:17 Patient arrived in ED. mr 09:17 Sabrina Emmanuel MD is Private Physician. mr 09:25 Triage completed. kr3 09:28 Arm band placed on Patient placed in an exam room, on a stretcher. kr3 09:29 Marlyn Corea, RN is Primary Nurse. jg9 10:02 Ryland Rodriguez MD is Attending Physician. kdr 10:06 Patient has correct armband on for positive identification. Bed in low position. Call jg9 light in reach. Side rails up X 1. 10:06 Inserted saline lock: 18 gauge in right antecubital area, using aseptic technique. jg9 Blood collected. 10:37 Basic Metabolic Panel Sent. jw7 10:37 CBC with Diff Sent. jw7 10:37 Troponin HS Sent. jw7 10:38 TSH Sent. jw7 10:58 XRAY Chest (1 view) In Process Unspecified. EDMS 14:08 Sabrina Emmanuel MD is Referral Physician. kdr 14:08 Garo Payne MD is Referral Physician. kdr 14:16 No provider procedures requiring assistance completed. jg9 14:16 IV discontinued. jg9 Administered Medications: 14:16 Drug: Lopressor (metoprolol TARTRATE)) 25 mg Route: PO; jg9 14:17 Follow up: Response: Medication administered at discharge. jg9 Medication: 14:16 VIS not applicable for this client. jg9 Outcome: 14:10 Discharge ordered by . kdr 14:17 Condition: stable jg9 14:26 Discharged to home ambulatory. jg9 14:26 Discharge instructions given to patient, Instructed on discharge instructions, follow up and referral plans. Demonstrated understanding of instructions, follow-up care, Prescriptions given X 1. 14:26 Patient left the ED. jg9 Signatures: Dispatcher [employer] EDPR Ryland Rodriguez MD MD [facility] [place] mr Marlyn Corea, RN RN jg9 Kasey Romano jw7 Veda Mcfarland, ADRIAN RN kr3 Corrections: (The following items were deleted from the chart) 09:28 09:25 Allergies: Tetanus Vaccines \T\ Toxoid; kr3 kr3
--- NOTE | 2021-12-29 14:11 | EDPHYS ---
Physician Documentation [facility] Name: Trina Diane Age: 71 yrs Sex: Female : 1950 Arrival Date: 12/29/2021 Time: 09:17 Bed 15 Private MD: Sabrina Emmanuel C ED Physician Rlyand Rodriguez HPI: 12/29 17:36 This 71 yrs old Female presents to ER via Ambulatory with complaints of Nausea. kdr 17:37 Patient states his right prior to arrival, he started to have a rapid heart rate and kdr were sweating and very dizzy. You are also nauseous. He has not had this previously. Patient also has palpitations with heart rate in the 120s. She has a history of hypothyroidism and has had diminishing doses of thyroxine over the past few months.. Onset: The symptoms/episode began/occurred suddenly, just prior to arrival. Severity of symptoms: At their worst the symptoms were mild in the emergency department the symptoms are unchanged. The patient has experienced similar episodes in the past, a few times. The patient has not recently seen a physician. Historical: - Allergies: 09:25 No Known Allergies; kr3 - Home Meds: 14:17 Synthroid 300 mcg Oral tab 1 tab once daily [Active]; jg9 - PMHx: 09:25 thyroid cancer; kr3 14:17 Hypothyroidism; jg9 - PSHx: 09:25 removal of thyroid; kr3 - Immunization history:: Adult Immunizations up to date. - Social history:: Smoking status: Patient denies any tobacco usage or history of. ROS: 17:37 Constitutional: Negative for fever, chills, and weight loss, Eyes: Negative for injury, kdr pain, redness, and discharge. 17:37 Cardiovascular: Positive for palpitations, Negative for chest pain, edema, orthopnea, paroxysmal nocturnal dyspnea. Exam: 11:58 ECG was reviewed by the Attending Physician. kdr 17:37 Constitutional: This is a well developed, well nourished patient who is awake, alert, kdr and in no acute distress. Head/Face: Normocephalic, atraumatic. Eyes: Pupils equal round and reactive to light, extra-ocular motions intact. Lids and lashes normal. Conjunctiva and sclera are non-icteric and not injected. Cornea within normal limits. Periorbital areas with no swelling, redness, or edema. Neck: Trachea midline, no thyromegaly or masses palpated, and no cervical lymphadenopathy. Supple, full range of motion without nuchal rigidity, or vertebral point tenderness. No Meningismus. Chest/axilla: Normal chest wall appearance and motion. Nontender with no deformity. No lesions are appreciated. Cardiovascular: Regular rate and rhythm with a normal S1 and S2. No gallops, murmurs, or rubs. Normal PMI, no JVD. No pulse deficits. Respiratory: Lungs have equal breath sounds bilaterally, clear to auscultation and percussion. No rales, rhonchi or wheezes noted. No increased work of breathing, no retractions or nasal flaring. Abdomen/GI: Soft, non-tender, with normal bowel sounds. No distension or tympany. No guarding or rebound. No evidence of tenderness throughout. Back: No spinal tenderness. No costovertebral tenderness. Full range of motion. Skin: Warm, dry with normal turgor. Normal color with no rashes, no lesions, and no evidence of cellulitis. MS/ Extremity: Pulses equal, no cyanosis. Neurovascular intact. Full, normal range of motion. Neuro: Awake and alert, GCS 15, oriented to person, place, time, and situation. Cranial nerves II-XII grossly intact. Motor strength 5/5 in all extremities. Sensory grossly intact. Cerebellar exam normal. Normal gait. Psych: Awake, alert, with orientation to person, place and time. Behavior, mood, and affect are within normal limits. Vital Signs: 09:21 BP 145 / 90; Pulse 122; Resp 18; Temp 98.3; Pulse Ox 100% ; Weight 99.79 kg; Height 5 kr3 ft. 6 in. (167.64 cm); Pain 0/10; 10:00 BP 148 / 81; Pulse 103; Resp 17 S; Pulse Ox 95% on R/A; jg9 10:30 BP 143 / 81; Pulse 65; Resp 21 S; Pulse Ox 99% on R/A; jg9 11:00 BP 117 / 67; Pulse 67; Resp 13 S; Pulse Ox 96% on R/A; jg9 11:30 BP 134 / 76; Pulse 63; Resp 17 S; Pulse Ox 97% on R/A; jg9 12:00 BP 132 / 71; Pulse 62; Resp 13 S; Pulse Ox 97% on R/A; jg9 13:00 BP 145 / 81; Pulse 62; Resp 11 S; Pulse Ox 98% on R/A; jg9 14:00 BP 132 / 79; Pulse 67; Resp 10 S; Pulse Ox 100% on R/A; jg9 09:21 Body Mass Index 35.51 (99.79 kg, 167.64 cm) kr3 MDM: 14:10 Patient medically screened. kdr 17:37 Data reviewed: vital signs, nurses notes, lab test result(s), radiologic studies. kdr Counseling: I had a detailed discussion with the patient and/or guardian regarding: the historical points, exam findings, and any diagnostic results supporting the discharge/admit diagnosis, lab results, radiology results, the need for outpatient follow up. ED course: I discussed the case with Dr. Emmanuel and Dr. Payne. Dr. Payne is actually managing her thyroid. He advised no change in her thyroid medication but to add a beta-jonas and for her to follow-up in his office this next week. I relayed this information to the patient. Patient and were happy with the care provided plan for discharge and follow-up. 12/29 10:16 Order name: Basic Metabolic Panel; Complete Time: 12:40 9 12/29 10:16 Order name: CBC with Diff; Complete Time: 12:40 9 12/29 10:16 Order name: Troponin HS; Complete Time: 12:40 9 12/29 10:16 Order name: XRAY Chest (1 view); Complete Time: 12:40 9 12/29 10:35 Order name: TSH; Complete Time: 12:40 kdr 12/29 12:01 Order name: T4 Free; Complete Time: 12:40 EDMS 12/29 10:16 Order name: EKG; Complete Time: 10:17 jg9 12/29 10:16 Order name: Cardiac monitoring; Complete Time: 10:16 jg9 12/29 10:16 Order name: EKG - Nurse/Tech; Complete Time: 10:16 jg9 12/29 10:16 Order name: IV Saline Lock; Complete Time: 10: j9 12/29 10:16 Order name: Labs collected and sent; Complete Time: 10:37 g9 12/29 10:16 Order name: O2 Per Protocol; Complete Time: 11:07 12/29 10:16 Order name: O2 Sat Monitoring; Complete Time: 10:16 EC:58 Rate is 110 beats/min. Rhythm is regular, Sinus tachycardia with No ectopy. QRS [place] is kdr Normal. LA interval is normal. QRS interval is normal. QT interval is normal. Clinical impression: NSR w/ Non-specific ST/T Changes and Sinus tachycardia. Administered Medications: 14:16 Drug: Lopressor (metoprolol TARTRATE)) 25 mg Route: PO; jg9 14:17 Follow up: Response: Medication administered at discharge. jg9 Disposition Summary: 12/29/21 14:10 Discharge Ordered Location: Home kdr Condition: Stable kdr Diagnosis - Palpitations kdr - Tachycardia, unspecified kdr Followup: kdr - With: Sabrina Emmanuel MD - When: 2 - 3 days - Reason: If symptoms return, Further diagnostic work-up, Recheck today's complaints, Continuance of care, Re-evaluation by your physician Followup: kdr - With: Garo Payne MD - When: 5 - 6 days - Reason: If symptoms return, Further diagnostic work-up, Recheck today's complaints, Continuance of care, Re-evaluation by your physician Discharge Instructions: - Discharge Summary Sheet kdr - Palpitations, [id number] kdr - Sinus Tachycardia kdr Forms: - Medication Reconciliation Form kdr - Thank You Letter kdr Prescriptions: - Lopressor 50 mg Oral Tablet - take 1 tablet by ORAL route every 12 hours Hold for heart rate less than 70; 15 kdr tablet; Refills: 0, Product Selection Permitted Signatures: Dispatcher [employer] EDRyland Stephens MD MD kdr Marlyn Corea RN RN jg9 Veda Mcfarland RN RN kr3 Corrections: (The following items were deleted from the chart) 09:28 09:25 Allergies: Tetanus Vaccines \T\ Toxoid; kr3 kr3
[2021-12-29] MEDS ORDERED: METOPROLOL TAR 25 MG TAB ONE (14:22)
[2021-12-30 19:29] VITALS: TEMP 98.3
[2021-12-30 19:47] VITALS: BP 132/79; O2SAT 100
== END 2021-12-29 14:26 | disposition home or self-care (01) ==
LOC: ER 09:12
DX: R00.2 Palpitations (principal); R00.0 Tachycardia, unspecified; R11.0 Nausea
CPT/HCPCS: 36415; 71045; 80048; 84439; 84443; 84484; 85025; 93005; 99284

== ENCOUNTER 2023-07-28 19:25 | Emergency (ER) | payer OTHER ==
--- OUTSIDE RECORDS SUMMARY | 2023-07-28 19:28 | XMS REPORT | Continuity of Care Document ---
Author Name Unknown Address [address] [place] [address] [place], [place] [id number] [facility] Address [address] [place] [address] [address] [place] [address] Care Team Providers Care Sizing Sprayer Name Role Phone [email or web address]_Kadiyala_S Attending Clinician Unavaila ble [email or web address]_Brown_J Attending Clinician Unavailable GC_GCBZW_Kadiyala_S Admitting Clinician Unavaila ble GC_EAH_Brown_J Admitting Clinician Unavailable Payers Payer Name Policy Type Policy Number Effective Date Expirati on Date Source MEDICARE [place]: [place] [id number] 2016 00:00:00 [facility] \T\ WELFARE FUND ([employer]) [id number] Encounters Start Date/Time End Date/Time Encounter Type Admission Type Attending Clinicians Care Facility Care Department Encounter ID Source 2023-02-11 00:00:00 2023-02-11 00:00:00 Outpatient GC_GCBZW_Ka diyala_S PRIV PRIV [id number] [facility] 2023-01-08 00:00:00 2023-01-08 00:00:00 Outpatient GC_GCBZW_Ka diyala_S PRIV PRIV [id number] [facility] 2022-08-02 00:00:00 2022-08-02 00:00:00 Outpatient GC_EAH_Brow n_J PRIV PRIV [id number] [facility] 2022-08-02 00:00:00 2022-08-02 00:00:00 Outpatient GC_EAH_Brow n_J [facility]IV PR[facility] [id number] [facility] 2021-01-10 00:00:00 2021-01-10 00:00:00 Outpatient GC_EAH_Brow n_J [facility] [id number] [facility]
[2023-07-28] MEDS ORDERED: dilTIAZem HCL 25 MG/5 ML VIAL IV ONE (19:44)
[2023-07-28 20:08] LABS: Absolute Basophils 0.1 K/uL (0-0.5); Absolute Eosinophils 0.2 K/uL (0-0.5); Absolute Lymphocytes (CBC) 1.3 K/uL (0.7-4.9); Absolute Neutrophil 5.9 K/uL (1.8-8.0); Basophils % 0.9 % (0-1.3); Eosinophils % 2.7 % (0-4.4); Hematocrit 44.8 % (36.0-45.0); Hemoglobin 14.7 g/dL (12.0-15.0); Lymphocytes % 15.8 % (15.3-44.8); MCH 29.4 pg (27.0-35.0); MCHC 32.8 g/dL (32.0-36.0); MCV 89.6 fL (80-100); MPV 9.1 fL (7.6-11.3); Monocytes % 11.3 % (3.3-12.3); Neutrophils % 69.3 % (41.7-73.7); Nucleated Red Blood Cells % 0.1 % (0-0); Platelets 210 thou/uL (152-406); Red Cell Distribution Width 13.6 % (12.1-15.2)
[2023-07-28 20:36] LABS: PT Prothrombin Time 12.7 SECONDS (9.5-12.5); Protime INR 1.16
--- NOTE | 2023-07-28 20:45 | RAD REPORT ---
EXAM DESCRIPTION: RADChest Single View07/28/2023 8:28 pm CLINICAL HISTORY: PALPITATIONS COMPARISON: Chest Pa And Lat (2 Views) dated 11/28/2022; Chest Single View dated 12/29/2021; Chest Sin gle View dated 08/29/2019; Chest Single View dated 06/18/2019 TECHNIQUE: Portable AP view of the chest. FINDINGS: The lungs are clear. No pneumothorax or effusion. The cardiomediastinal contours are unre markable. IMPRESSION: No acute cardiopulmonary process.
[2023-07-28 20:49] LABS: Albumin 3.2 g/dL (3.4-5.0); Albumin/Globulin Ratio 0.9 (1.1-1.8); Anion Gap 10.5 mEq/L (5.0-15.0); Bilirubin Direct 0.2 mg/dL (0-0.2); Bilirubin Indirect, Calculated 0.3 mg/dL (0.2-0.8); Bilirubin Total 0.5 mg/dL (0.2-1.0); Globulin 3.5 g/dL (2.3-3.5); Potassium 3.5 mEq/L (3.5-5.1); Protein, Total 6.7 g/dL (6.4-8.2); Troponin High Sensitivity 22.1 pg/mL (<58.9)
--- NOTE | 2023-07-28 21:00 | EDPHYS ---
Physician Documentation [facility] Name: Trina Diane Age: 73 yrs Sex: Female : 1950 Arrival Date: 07/28/2023 Time: 19:25 Bed 5 Private MD: ED Physician Petar Taveras HPI: 07/27 19:44 This 73 yrs old Female presents to ER via Unassigned with complaints of High Blood sp3 Pressure, High heart rate. 19:44 73-year-old female with a history of prior paroxysmal atrial fibrillation last active sp3 in 2021 and prior now resolved thyroid cancer currently on Synthroid now presents to the ED with chief complaint potation's and tachycardia sudden onset approximate 1 hour prior to arrival while having dinner. Patient denies any chest pain, shortness of breath, headache, Pietro pain, nausea, vomiting, diarrhea, bleeding, or any other signs or symptoms on ROS at this time. Patient is not on any anticoagulants or antiplatelet agents. She will take metoprolol and Synthroid.. Historical: - Allergies: 19:48 No Known Allergies; nj1 - PMHx: 19:48 Hypothyroidism; THYROID CANCER; nj1 - PSHx: 19:48 removal of thyroid; nj1 - Immunization history:: Client reports receiving the 2nd dose of the Covid vaccine. - Infectious Disease History:: Denies. - Social history:: Smoking status: Patient denies any tobacco usage or history of. ROS: 19:45 Constitutional: Negative for fever, chills, and weight loss, Eyes: Negative for injury, sp3 pain, redness, and discharge, ENT: Negative for injury, pain, and discharge, Neck: Negative for injury, pain, and swelling, Respiratory: Negative for shortness of breath, cough, wheezing, and pleuritic chest pain, Abdomen/GI: Negative for abdominal pain, nausea, vomiting, diarrhea, and constipation, Back: Negative for injury and pain, MS/Extremity: Negative for injury and deformity, Skin: Negative for injury, rash, and discoloration, Neuro: Negative for headache, weakness, numbness, tingling, and seizure, Psych: Negative for depression, anxiety, suicide ideation, homicidal ideation, and hallucinations, Allergy/Immunology: Negative for hives, rash, and allergies, Endocrine: Negative for neck swelling, polydipsia, polyuria, polyphagia, and marked weight changes, Hematologic/Lymphatic: Negative for swollen nodes, abnormal bleeding, and unusual bruising, 19:45 All other systems are negative, Exam: 19:45 Constitutional: This is a well developed, well nourished patient who is awake, alert, sp3 and in no acute distress. Head/Face: Normocephalic, atraumatic. Eyes: Pupils equal round and reactive to light, extra-ocular motions intact. Lids and lashes normal. Conjunctiva and sclera are non-icteric and not injected. Cornea within normal limits. Periorbital areas with no swelling, redness, or edema. ENT: Nares patent. No nasal discharge, no septal abnormalities noted. External auditory canals are clear. Oropharynx with no redness, swelling, or masses, exudates, or evidence of obstruction, uvula midline. Mucous membranes moist. Neck: Trachea midline, no thyromegaly or masses palpated, and no cervical lymphadenopathy. Supple, full range of motion without nuchal rigidity, or vertebral point tenderness. No Meningismus. Chest/axilla: Normal chest wall appearance and motion. Nontender with no deformity. No lesions are appreciated. Respiratory: Lungs have equal breath sounds bilaterally, clear to auscultation and percussion. No rales, rhonchi or wheezes noted. No increased work of breathing, no retractions or nasal flaring. Abdomen/GI: Soft, non-tender, with normal bowel sounds. No distension or tympany. No guarding or rebound. No evidence of tenderness throughout. Back: No spinal tenderness. No costovertebral tenderness. Full range of motion. Skin: Warm, dry with normal turgor. Normal color with no rashes, no lesions, and no evidence of cellulitis. MS/ Extremity: Pulses equal, no cyanosis. Neurovascular intact. Full, normal range of motion. Neuro: Awake and alert, GCS 15, oriented to person, place, time, and situation. Cranial nerves II-XII grossly intact. Motor strength 5/5 in all extremities. Sensory grossly intact. Cerebellar exam normal. Normal gait. Psych: Awake, alert, with orientation to person, place and time. Behavior, mood, and affect are within normal limits. 19:45 ECG was reviewed by the Attending Physician. EKG demonstrates atrial fibrillation at 158 bpm with normal axis, occasional ectopy and nonspecific diffuse ST's ST changes without evidence of acute ischemia. 19:46 Cardiovascular: Patient is irregularly irregular heartbeat with equal pulses sp3 bilaterally., Vital Signs: 19:35 BP 109 / 75; Pulse 137; Resp 21; Pulse Ox 100% on R/A; rv 19:36 BP 163 / 110; Pulse 141; Resp 20; Temp 97.2(TE); Pulse Ox 97% on R/A; Weight 99.79 kg; nj1 Height 5 ft. 7 in. ; 20:00 BP 144 / 87; Pulse 107; Resp 17; Pulse Ox 100% ; rv 21:00 BP 143 / 95; Pulse 73; Resp 16; Temp 98; Pulse Ox 100% ; rv 19:36 Body Mass Index 34.46 (99.79 kg, 170.18 cm) nj1 Marcin Coma Score: 21:00 Eye Response: spontaneous(4). Motor Response: obeys commands(6). Verbal Response: rv oriented(5). Total: 15. MDM: 19:35 Patient medically screened. sp3 19:47 Data reviewed: vital signs, nurses notes, old medical records, lab test result(s), EKG, sp3 radiologic studies. ED course: 73-year-old female with sudden onset of atrial fibrillation approximate hour prior to arrival. Given the short amount of time since onset, we will try and break the atrial fibrillation with AV unique blocking agent. Cardizem will be given for symptom milligrams with subsequent increase in dosing as needed. Other workup as indicated and Lovenox given if we are unable to break. I am not highly suspicious for acute coronary syndrome, electrolyte abnormality, vascular dissection or any other compromise, sepsis, shock or any other critical process at this time. Disposition pending workup and patient course.. 07/27 19:44 Order name: Basic Metabolic Panel; Complete Time: 20:50 sp3 07/27 19:44 Order name: CBC with Diff; Complete Time: 20:48 sp3 07/27 19:44 Order name: LFT's; Complete Time: 20:50 sp3 07/27 19:44 Order name: Magnesium; Complete Time: 20:50 sp3 07/27 19:44 Order name: NT PRO-BNP; Complete Time: 20:50 sp3 07/27 19:44 Order name: PT-INR; Complete Time: 20:48 sp3 07/27 19:44 Order name: Troponin HS; Complete Time: 20:50 sp3 07/27 19:44 Order name: XRAY Chest (1 view); Complete Time: 20:48 sp3 07/27 19:44 Order name: Cardiac monitoring; Complete Time: 19:46 sp3 07/27 19:44 Order name: EKG - Nurse/Tech; Complete Time: 19:47 sp3 07/27 19:44 Order name: IV Saline Lock; Complete Time: 19:47 sp3 07/27 19:44 Order name: Labs collected and sent; Complete Time: 19:47 sp3 07/27 19:44 Order name: O2 Per Protocol; Complete Time: 19:47 sp3 07/27 19:44 Order name: O2 Sat Monitoring; Complete Time: 19:47 sp3 Administered Medications: 19:47 Drug: Diltiazem IVP 10 mg IVP once; Over 2 minutes Route: IVP; Site: right forearm; rv 21:10 Follow up: Response: No adverse reaction; Cardiac rhythm changed rv Disposition Summary: 07/28/23 21:00 Discharge Ordered Notes: Location: Home sp3 Condition: Stable sp3 Diagnosis - Atrial fibrillation with RVR, resolved sp3 Followup: sp3 - With: Private Physician - When: Upon discharge from the Emergency Department - Reason: Continuance of care Followup: sp3 - With: Phil Allen MD - When: Upon discharge from the Emergency Department - Reason: Continuance of care Discharge Instructions: - Discharge Summary Sheet sp3 - Atrial Fibrillation sp3 Forms: - Medication Reconciliation Form sp3 - Thank You Letter sp3 - Antibiotic Education sp3 - Prescription Opioid Use sp3 - Patient Portal Instructions sp3 - Leadership Thank You Letter sp3 Signatures: Dispatcher [employer] EDMS Reddy Ward RN RN Petar Jin MD MD sp3 Miriam Contreras RN RN nj1 Corrections: (The following items were deleted from the chart) 19:44 19:44 BASIC METABOLIC PANEL+C.LAB.BRZ ordered. EDMS EDMS 19:44 19:44 CBC+H.LAB.BRZ ordered. EDMS EDMS 19:44 19:44 HEPATIC FUNCTION+C.LAB.BRZ ordered. EDMS EDMS 19:44 19:44 MAGNESIUM+C.LAB.BRZ ordered. EDMS EDMS 19:44 PROBNP+C.LAB.BRZ ordered. EDMS EDMS 19:44 PROTIME (+INR)+COAG.LAB.BRZ ordered. EDMS EDMS 19:44 Troponin High Sensitivity+C.LAB.BRZ ordered. EDMS EDMS 19:44 Chest Single View+RAD.RAD.BRZ ordered. EDMS EDMS
--- NOTE | 2023-07-28 21:00 | ER ---
Nurse's Notes [facility] Name: Trina Diane Age: 73 yrs Sex: Female : 1950 Arrival Date: 07/28/2023 Time: 19:25 Bed 5 Private MD: Diagnosis: Atrial fibrillation with RVR, resolved Presentation: 07/27 19:36 Chief complaint: Patient states: Rapid heart rate "140's" onset about an hour ago while nj1 sitting. 19:36 Method Of Arrival: Ambulatory [facility] 19:36 Coronavirus screen: Vaccine status: Patient reports receiving the 2nd dose of the covid nj1 vaccine. Ebola Screen: Patient denies travel to an Ebola-affected area in the 21 days before illness onset. Initial Sepsis Screen: Does the patient meet any 2 criteria? HR > 90 bpm. No. Patient's initial sepsis screen is negative. Does the patient have a suspected source of infection? No. Patient's initial sepsis screen is negative. Risk Assessment: Do you want to hurt yourself or someone else? Patient reports no desire to harm self or others. Onset of symptoms was July 28, 2023. 19:36 Acuity: ANNA 2 nj1 Historical: - Allergies: 19:48 No Known Allergies; nj1 - PMHx: 19:48 Hypothyroidism; THYROID CANCER; nj1 - PSHx: 19:48 removal of thyroid; nj1 - Immunization history:: Client reports receiving the 2nd dose of the Covid vaccine. - Infectious Disease History:: Denies. - Social history:: Smoking status: Patient denies any tobacco usage or history of. Screenin:47 [facility] ED Fall Risk Assessment (Adult) History of falling in the last 3 months, rv including since admission No falls in past 3 months (0 pts) Score/Fall Risk Level 0 - 2 = Low Risk Oriented to surroundings, Maintained a safe environment, Educated pt \\T\\ family on fall prevention, incl call for assistance when getting out of bed, Assessed \\T\\ reinforced patient's understanding of fall precautions. Abuse screen: Denies threats or abuse. Denies injuries from another. Nutritional screening: No deficits noted. Tuberculosis screening: No symptoms or risk factors identified. Assessment: 19:48 General: Appears comfortable, Behavior is agitated, anxious. Pain: Denies pain. Neuro: rv Level of Consciousness is awake, alert, obeys commands, Oriented to person, place, time, situation. Cardiovascular: Capillary refill < 3 seconds Patient's skin is warm and dry. Rhythm is atrial fibrillation with rapid ventricular response. Cardiovascular: Denies chest pain. Respiratory: Airway is patent Respiratory effort is even, unlabored. GI: No signs and/or symptoms were reported involving the gastrointestinal system. : No signs and/or symptoms were reported regarding the genitourinary system. Derm: Skin is intact. 21:07 Reassessment: Patient is alert, oriented x 3, equal unlabored respirations, skin rv warm/dry/pink. Patient states feeling better. Patient states symptoms have improved. Cardiovascular: Rhythm is regular. Vital Signs: 19:35 BP 109 / 75; Pulse 137; Resp 21; Pulse Ox 100% on R/A; rv 19:36 BP 163 / 110; Pulse 141; Resp 20; Temp 97.2(TE); Pulse Ox 97% on R/A; Weight 99.79 kg; nj1 Height 5 ft. 7 in. ; 20:00 BP 144 / 87; Pulse 107; Resp 17; Pulse Ox 100% ; rv 21:00 BP 143 / 95; Pulse 73; Resp 16; Temp 98; Pulse Ox 100% ; rv 19:36 Body Mass Index 34.46 (99.79 kg, 170.18 cm) nj1 [place] Coma Score: 21:00 Eye Response: spontaneous(4). Motor Response: obeys commands(6). Verbal Response: rv oriented(5). Total: 15. ED Course: 19:30 Patient arrived in ED. gm2 19:35 Petar Taveras MD is Attending Physician. sp3 19:37 Reddy Ward, ADRIAN is Primary Nurse. rv 19:47 Triage completed. nj1 19:47 Basic Metabolic Panel Sent. rv 19:47 CBC with Diff Sent. rv 19:47 LFT's Sent. rv 19:47 Magnesium Sent. rv 19:47 NT PRO-BNP Sent. rv 19:47 PT-INR Sent. rv 19:47 Troponin HS Sent. rv 19:47 No provider procedures requiring assistance completed. Initial lab(s) drawn, by me, rv sent to lab. EKG done, by ED staff, reviewed by Petar Taveras MD. Inserted saline lock: 22 gauge in right forearm, using aseptic technique. Blood collected. 19:47 Patient has correct armband on for positive identification. Client placed on continuous rv cardiac and pulse oximetry monitoring. NIBP monitoring applied. cannery tender engineer on. 19:48 Arm band placed on. nj1 20:30 XRAY Chest (1 view) In Process Unspecified. EDMS 21:00 Phil Allen MD is Referral Physician. sp3 21:10 IV discontinued, intact, bleeding controlled, No redness/swelling at site. Pressure rv dressing applied. Administered Medications: :47 Drug: Diltiazem IVP 10 mg IVP once; Over 2 minutes Route: IVP; Site: right forearm; rv 21:10 Follow up: Response: No adverse reaction; Cardiac rhythm changed rv Medication: :47 VIS not applicable for this client. rv Outcome: 21:00 Discharge ordered by . sp3 21:07 Discharged to home ambulatory, with family, rv 21:07 Condition: improved 21:07 Discharge instructions given to patient, Instructed on discharge instructions, follow up and referral plans. Demonstrated understanding of instructions, follow-up care, 21:10 Patient left the ED. rv Signatures: Dispatcher [employer] EDIL Reddy Ward, RN RN rv Petar Taveras MD MD sp3 Miriam Contreras RN RN nj1 Ely Rodriguez 2
[2023-07-28 23:26] VITALS: BP 143/95; TEMP 98; O2SAT 100
== END 2023-07-28 21:10 | disposition home or self-care (01) ==
LOC: ER 19:25
DX: I48.20 Chronic atrial fibrillation, unspecified (principal); Z79.01 Long term (current) use of anticoagulants; Z85.850 Personal history of malignant neoplasm of thyroid
CPT/HCPCS: 36415; 71045; 80048; 80076; 83735; 83880; 84484; 85025; 85610; 93005; 96374; 99285

== ENCOUNTER 2024-07-21 13:56 | Emergency (ER) | payer OTHER ==
--- OUTSIDE RECORDS SUMMARY | 2024-07-21 14:00 | XMS REPORT | Continuity of Care Document ---
Author Name Unknown Address [address] [place] [address] [address] [place] [address] [facility] [place] [facility] Address [address] [facility] [address] [place] [address] Care Team Providers Care Staff Anesthesiologist Name Role Phone Tyrell Emmanuel MD Primary Care Physician [phone] Andriy Montiel MD Attending Clinician [phone] ANDRIY MONTIEL Attending Clinician Unavail able GC_GCBZW_Kadiyala_S Attending Clinician Unavaila ble GC_EAH_Brown_J Attending Clinician Unavailable GC_GCBZW_Kadiyala_S Admitting Clinician Unavaila ble GC_EAH_Brown_J Admitting Clinician Unavailable Payers Payer Name Policy Type Policy Number Effective Date Expirati on Date Source MEDICARE PART A AND B Medicare [id number] 2023 00:00:[address] [facility] [id number] 00:00:00 [place] [employer] [id number] 2016 00:00:00 [facility] HEALTH \T\ WELFARE FUND ([employer]) [id number] Problems Condition Name Condition Details Condition Category Status Onset Date Resolution Date Last Treatment Date Treating Clinician Comments Source Late onset Alzheimer' s disease without behavioral disturbanc e Late onset Alzheimer' s disease without behavioral disturbanc e Disease Active 05-27 00:00: 00 Celestina James Late onset Alzheimer' s disease without behavioral disturbanc e Late onset Alzheimer' s disease without behavioral disturbanc e Disease Active 08-23 00:00: 00 Memchay Bang Epic 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 08-23 00:00: 00 Memchay Bang Epic Hyperlipem ia Hyperlipem ia Disease Active 08-23 00:00: 00 Memchay Bang Epic Hypertensi on Hypertensi on Disease Active 08-23 00:00: 00 Memoria kellie Bang Epic Hypothyroi d Hypothyroi d Disease Active 08-23 00:00: 00 Memoria kellie Bang Epic Allergies, Adverse Reactions, Alerts Allergy Name Allergy Type Status Severity Reaction(s) Onset Date Inactive Date Treating Clinician Comments Source NO KNOWN ALLERGIE S SYSTEMIC Active MHEOUT NO KNOWN ALLERGIE S SYSTEMIC Active MHEOUT NO KNOWN ALLERGIE S SYSTEMIC Active MHEOUT NO KNOWN ALLERGIE S SYSTEMIC Active MHEOUT NO KNOWN ALLERGIE S SYSTEMIC Active MHEOUT NO KNOWN ALLERGIE S SYSTEMIC Active Memoria l [place] Epic NO KNOWN ALLERGIE S SYSTEMIC Active Memoria l [place] Epic NO KNOWN ALLERGIE S SYSTEMIC Active Memoria l [place] Epic NO KNOWN ALLERGIE S SYSTEMIC Active Memoria l [place] Epic Social History Social Habit Start Date Stop Date Quantity Comments Source Gender identity 2023-07-06 08:31:24 Identifies as female gender (finding) [facility] Sexual orientation [facility] ASSERTION Possible [facility] Alcoholic beverage intake 2024-07-08 00:00:00 2024-07-08 00:00:00 Lifetime non-drinker (finding) [facility] History of Social function 2024-07-08 00:00:00 2024-07-08 00:00:00 [facility] Smoking Status Start Date Stop Date Source [facility] smoked [facility] Medications Ordered Medication Name Filled Medication Name Start Date Stop Date Current Medication? Ordering Clinician Indication Dosage Frequency Signature (SIG) Comments Components Source Lecanemab-i rmb (Leqembi) 500 MG/5ML solution Lecanemab-i rmb (Leqembi) 500 MG/5ML solution 07-08 00:00: 00 01-04 23:59 :00 No 920mg Q14D Infuse 9.2 mL into a venous catheter every 14 days. Celestina Bang [facility] donepezil (Aricept) 10 MG tablet donepezil (Aricept) 10 MG tablet 11-20 00:00: 00 11-20 23:59 :00 No [id number] 10mg Take 1 tablet by mouth at bedtime. Celestina Bang [facility] donepezil (Aricept) 10 MG tablet donepezil (Aricept) 10 MG tablet 09-09 00:00: 00 11-20 00:00 :00 No [id number] 10mg Take 1 tablet by mouth at bedtime. Celestina Bang [facility] ezetimibe (Zetia) 10 MG tablet ezetimibe (Zetia) 10 MG tablet 05-09 00:00: 00 Yes PO, 0 Refill(s) Celestina Bang [facility] hyoscyamine (Levsin) 0.125 MG SL tablet hyoscyamine (Levsin) 0.125 MG SL tablet 05-09 00:00: 00 Yes PO, 0 Refill(s) Celestina Bang [facility] metoprolol tartrate (Lopressor) 25 MG tablet metoprolol tartrate (Lopressor) 25 MG tablet 05-09 00:00: 00 Yes = 1 tab, PO, BID, 0 Refill(s) Celestina Bang [facility] levothyroxi ne (Tirosint) 200 MCG capsule levothyroxi ne (Tirosint) 200 MCG capsule 05-09 00:00: 00 Yes PO, 0 Refill(s) Celestina Bang [facility] Immunizations Ordered Immunization Name Filled Immunization Name Date Status Comments Source Zoster, Recombinant Zoster, Recombinant 00:00:00 Completed [facility] Vital Signs Vital Name Observation Time Observation Value Comments S theodore Systolic blood pressure 2024-07-08 09:38:00 135 mm[Hg] [facility] Diastolic blood pressure 2024-07-08 09:38:00 80 mm[Hg] [facility] Heart rate 2024-07-08 09:38:00 76 /min Patrizia [facility] Body temperature 2024-07-08 09:38:00 36.33 [facility] Epic Respiratory rate 2024-07-08 09:38:00 16 /min [facility] Body height 2024-07-08 09:38:00 168.9 cm Norman chucho [facility] Body weight 2024-07-08 09:38:00 92.715 kg Norman chucho [place] [facility] BMI 2024-07-08 09:38:00 32.50 kg/m2 Norman rial [place] Oxygen saturation in Arterial blood by Pulse oximetry 2024-07-08 09:38:00 97 /min [facility] Systolic blood pressure 2024-07-08 09:38:00 135 mm[Hg] [facility] Diastolic blood pressure 2024-07-08 09:38:00 80 mm[Hg] [facility] Heart rate 2024-07-08 09:38:00 76 /min [facility] Body temperature 2024-07-08 09:38:00 36.33 [facility] Respiratory rate 2024-07-08 09:38:00 16 /min [facility] Body height 2024-07-08 09:38:00 168.9 cm Norman chucho [facility] Body weight 2024-07-08 09:38:00 92.715 kg Norman chucho [place] [facility] BMI 2024-07-08 09:38:00 32.50 kg/m2 Norman rial [place] Oxygen saturation in Arterial blood by Pulse oximetry 2024-07-08 09:38:00 97 /min [facility] Systolic blood pressure 2024-05-27 09:47:00 115 mm[Hg] [facility] Diastolic blood pressure 2024-05-27 09:47:00 76 mm[Hg] [facility] Heart rate 2024-05-27 09:47:00 58 /min Memor ial [place] [facility] Body temperature 2024-05-27 09:47:00 36.22 [facility] Respiratory rate 2024-05-27 09:47:00 16 /min [facility] Body height 2024-05-27 09:47:00 167.6 cm Norman rial [place] [facility] Body weight 2024-05-27 09:47:00 90.901 kg Norman rial [facility] BMI 2024-05-27 09:47:00 32.35 kg/m2 Norman rial [place] [facility] Oxygen saturation in Arterial blood by Pulse oximetry 2024-05-27 09:47:00 97 /min [facility] Systolic blood pressure 2024-05-27 09:47:00 115 mm[Hg] [facility] Diastolic blood pressure 2024-05-27 09:47:00 76 mm[Hg] [facility] Heart rate 2024-05-27 09:47:00 58 /min Memor ial [place] Body temperature 2024-05-27 09:47:00 36.22 [facility] Epic Respiratory rate 2024-05-27 09:47:00 16 /min [facility] Body height 2024-05-27 09:47:00 167.6 cm Norman chucho Herreraann [facility] Body weight 2024-05-27 09:47:00 90.901 kg Norman jeanl [place] [facility] BMI 2024-05-27 09:47:00 32.35 kg/m2 Norman rial [facility] Oxygen saturation in Arterial blood by Pulse oximetry 2024-05-27 09:47:00 97 /min [facility] Systolic blood pressure 2024-02-20 09:18:00 120 mm[Hg] [facility] Diastolic blood pressure 2024-02-20 09:18:00 73 mm[Hg] [facility] Heart rate 2024-02-20 09:18:00 71 /min [facility] ial [place] [facility] Body temperature 2024-02-20 09:18:00 36.11 [facility] Epic Respiratory rate 2024-02-20 09:18:00 16 /min [facility] Body height 2024-02-20 09:18:00 168.9 cm Norman chucho [place] [facility] Body weight 2024-02-20 09:18:00 89.812 kg Norman jeanl [place] [facility] BMI 2024-02-20 09:18:00 31.48 kg/m2 Norman rial [place] [facility] Oxygen saturation in Arterial blood by Pulse oximetry 2024-02-20 09:18:00 96 /min [facility] Systolic blood pressure 2024-02-20 09:18:00 120 mm[Hg] [facility] Diastolic blood pressure 2024-02-20 09:18:00 73 mm[Hg] [facility] Heart rate 2024-02-20 09:18:00 71 /min [facility] Body temperature 2024-02-20 09:18:00 36.11 [facility] Respiratory rate 2024-02-20 09:18:00 16 /min [facility] Body height 2024-02-20 09:18:00 168.9 cm Norman chucho [facility] Body weight 2024-02-20 09:18:00 89.812 kg Norman rial [facility] BMI 2024-02-20 09:18:00 31.48 kg/m2 Norman rial [place] [facility] Oxygen saturation in Arterial blood by Pulse oximetry 2024-02-20 09:18:00 96 /min [facility] Systolic blood pressure 2023-11-21 09:35:00 120 mm[Hg] [facility] Diastolic blood pressure 2023-11-21 09:35:00 80 mm[Hg] [facility] Heart rate 2023-11-21 09:35:00 55 /min [facility] Body temperature 2023-11-21 09:35:00 35.89 [facility] Respiratory rate 2023-11-21 09:35:00 16 /min [facility] Body height 2023-11-21 09:35:00 167.6 cm Norman chucho [facility] Body weight 2023-11-21 09:35:00 90.266 kg Norman rial [facility] BMI 2023-11-21 09:35:00 32.12 kg/m2 Norman rial [place] Oxygen saturation in Arterial blood by Pulse oximetry 2023-11-21 09:35:00 96 /min [facility] Systolic blood pressure 2023-11-21 09:35:00 120 mm[Hg] [facility] Diastolic blood pressure 2023-11-21 09:35:00 80 mm[Hg] [facility] Heart rate 2023-11-21 09:35:00 55 /min [facility] Body temperature 2023-11-21 09:35:00 35.89 [facility] Respiratory rate 2023-11-21 09:35:00 16 /min [facility] Body height 2023-11-21 09:35:00 167.6 cm [facility] Body weight 2023-11-21 09:35:00 90.266 kg [facility] BMI 2023-11-21 09:35:00 32.12 kg/m2 [facility] Oxygen saturation in Arterial blood by Pulse oximetry 2023-11-21 09:35:00 96 /min [facility] Procedures Procedure Date / Time Performed Performing Clinician Source Apolipoprotein E (ApoE) Isoform, Plasma AD-Detect 2024-05-27 00:00:00 [facility] PET/CT brain 2024-05-27 00:00:00 [facility] MRI brain wo IV contrast 2024-05-27 00:00:00 [facility] Encounters Start Date/Time End Date/Time Encounter Type Admission Type Attending [facility] Care Department Encounter ID Source 2024-07-08 09:30:00 2024-07-08 10:23:24 Office Visit Andriy Montiel [id number] Celestina hopkins [facility] 2024-07-08 09:27:35 2024-07-08 10:23:24 Outpatient Elective ANDRIY MONTIEL MHEOUT MHEOUT [id number] M[facility]OUT 2024-06-19 10:43:28 2024-06-19 17:06:05 Outpatient Elective MHEOUT MHEOUT [id number] M[facility]OUT 2024-06-06 07:04:39 2024-06-06 07:59:13 Outpatient Elective MHEOUT MHEOUT [id number] M[facility]OUT 2024-05-27 09:30:52 2024-05-27 10:26:34 Outpatient ANDRIY MONTIEL MHEOUT MHEOUT [id number] MHEOUT 2024-05-27 09:30:00 2024-05-27 10:26:34 Office Visit Andriy Montiel [id number] [facility] 09:15:00 2024-02-20 09:43:38 Office Visit Andriy Montiel [id number] [facility]24-[facility]-20 09:07:54 2024-02-20 09:43:38 Outpatient Elective ANDRIY MONTIEL MHEOUT MHEOUT [id number] M[facility]OUT 2023-11-21 09:09:56 2023-11-21 09:58:05 Outpatient ANDRIY MONTIEL MHEOUT MHEOUT [id number] [facility] 2023-11-21 09:15:00 2023-11-21 09:30:00 Office Visit Andriy Montiel [id number] Celestina hopkins [facility] 2023-09-10 09:37:00 2023-09-10 10:08:00 Outpatient Elective ANDRIY MONTIEL MHIEEPIC MHIEEPIC [id number] Celestina hopkins [facility] 2023-02-11 00:00:00 2023-02-11 00:00:00 Outpatient GC_GCBZW_Ka diyala_S PRIV PRIV [id number] [facility] 2023-01-08 00:00:00 2023-01-08 00:00:00 Outpatient GC_GCBZW_Ka diyala_S PRIV PRIV [id number] [facility] 2022-08-02 00:00:00 2022-08-02 00:00:00 Outpatient GC_EAH_Brow n_J PRIV PRIV [id number] [facility] 2022-08-02 00:00:00 2022-08-02 00:00:00 Outpatient GC_EAH_Brow n_J PRIV PRIV [id number] [facility] 2021-01-10 00:00:00 2021-01-10 00:00:00 Outpatient GC_EAH_Brow n_J [facility] [id number] [facility] Medical Notes has a current medication list which includes the following prescription(s):Vitals:Neurological ExamCranial NervesMotorSensoryReflexesGaitResults for orders placed or performed in visit on 05/27/24 Date/Time Note Provider Source 2024-07-09 17:22:03 [facility] 2024-07-09 17:22:03 Andriy Montiel MD - 07/08/2024 9:30 AM CDT History of Present Illness HPI 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 Candidate for MAB therapy. Will have her start the can be, 920 mg every 2 weeks. CDR done and on file Allergies as of 07/08/2024 (No Known Allergies) donepezil, ezetimibe, hyoscyamine, levothyroxine, metoprolol tartrate, and leqembi. 07/08/24 0938 BP: 135/80 Pulse: 76 Resp: 16 Temp: 36.3 ?C (97.4 ?F) SpO2: 97% Mental Status Awake and alert. Recalls 3 of 3 objects immediately. At 5 minutes recalls 0 of 3 objects. Recalls 1 of 3 objects with prompting. Speech is normal. Able to name objects and name parts of objects. Difficulty spelling words backwards. 2/5. MMSE score: 21. CN II: Visual acuity is normal. CN III, IV, : Extraocular movements intact bilaterally. Pupils equal round and reactive to light bilaterally. CN VII: Full and symmetric facial movement. CN XII: Tongue midline without atrophy or fasciculations. Strength is 5/5 throughout all four extremities. Light touch is normal in upper and lower extremities. Temperature is normal in upper and lower extremities. Vibration is normal in upper and lower extremities. Deep tendon reflexes: Symmetric. Casual gait is normal including stance, stride, and arm swing. Apolipoprotein E (ApoE) Isoform, Plasma AD-Detect Collection Time: 05/27/24 2:26 PM Result Value Ref Range QUEST AD DETECT(R) APOE ISOFORM E3/E4 Result Date: 06/06/2024 PROCEDURE INFORMATION: Exam: MR Head Without Contrast Exam date and time: 06/06/2024 7:15 AM Age: 74 years old Clinical indication: Dementia in other diseases classified elsewhere, unspecified severity, without behavioral disturbance, psychotic disturbance, mood disturbance, and anxiety; Alzheimer's disease with late onset; Additional info: Alzheimer's eval for aria TECHNIQUE: Imaging protocol: Magnetic resonance imaging of the head without contrast. COMPARISON: No relevant prior studies available. FINDINGS: Brain: Laura white interfaces are maintained. No acute infarct, hemorrhage, mass, edema, midline shift or herniation. Moderate volume loss with involvement of the mesial temporal lobes. Provided history of Alzheimer's. No new T2 signal abnormalities or edema. No evidence of microhemorrhages or superficial siderosis. No evidence of subdural or sulcal fluid collections. No imaging findings to suggest drug-induced amyloid-related imaging abnormalities. Cerebral ventricles: Unremarkable for age. Bones: Unremarkable. Paranasal sinuses: Normal as visualized. No acute sinusitis. Mastoid air cells: Normal as visualized. No mastoid effusion. Orbital cavities: Unremarkable. Vasculature: Central major flow voids appear maintained within the limitations. Soft tissues: Unremarkable. ELECTRONICALLY SIGNED BY IVONNE WELSH MD ON 06/06/2024 AT 08:32. Diagnoses and all orders for this visit: Late onset Alzheimer's disease without behavioral disturbance (HCC) Other orders - Lecanemab-irmb (Leqembi) 500 MG/5ML solution; Infuse 9.2 mL into a venous catheter every 14 days. Continue the Aricept, start Lecanemab 920 mg every 2 weeks. Risks, benefits, side effects reviewed with patient. Time: 35 minutes care services that are part of ongoing care related to this patient's single, serious condition or complex condition. T [facility] Due Date Last Done Comments Bone Density Scan 1950 CT Colonography 1951 Colonoscopy 1951 Colorectal Cancer Screening 1951 FIT-DNA 1951 FIT 1951 FOBT 1951 Lipid Panel 1950 Medicare Annual Wellness (AWV) 1951 Sigmoidoscopy 1951 DTaP/Tdap/Td Vaccines (1 - Tdap) 1970 Mammogram 1991 Pneumococcal Vaccine: 50+ Ye ars (1 of 1 - PCV) 2001 Zoster Vaccines (2 of 2) 03/09/2022 01/12/2022 Influenza Vaccine (#1) 2023 Respiratory Syncytial Virus (RSV) or >=60 (1 - 1-dose 75+ series) 2026 HIB Vaccines Aged Out No longer eligi ble based on patient's age to complete this topic HPV Vaccines Aged Out No longer eligi ble based on patient's age to complete this topic Hepatitis A Vaccines Aged Out No long er eligible based on patient's age to complete this topic Hepatitis B Vaccines Aged Out No long er eligible based on patient's age to complete this topic IPV Vaccines Aged Out No longer eligi ble based on patient's age to complete this topic Meningococcal Vaccine Aged Out No carrington hannah eligible based on patient's age to complete this topic Rotavirus Vaccines Aged Out No longer eligible based on patient's age to complete this topic [id number] 17:22:03 Diagnosis Late onset Alzheimer's disea se without behavioral disturbance (HCC) - [id number] 17:22:03 [place] [id number] 17:22:02* [place] [id number] 17:22:02* Andriy Montiel MD - 07/08/2024 9:30 AM CDT History of Present Illness HPI 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 Candidate for MAB therapy. Will have her start the can be, 920 mg every 2 weeks. CDR done and on file Allergies as of 07/08/2024 (No Known Allergies) has a current medication list which includes the following prescription(s): donepezil, ezetimibe, hyoscyamine, levothyroxine, metoprolol tartrate, and leqembi. Vitals:07/08/24 0938 BP: 135/80 Pulse: 76 Resp: 16 Temp: 36.3 ?C (97.4 ?F) SpO2: 97% Neurological Exam Mental Status Awake and alert. Recalls 3 of 3 objects immediately. At 5 minutes recalls 0 of 3 objects. Recalls 1 of 3 objects with prompting. Speech is normal. Able to name objects and name parts of objects. Difficulty spelling words backwards. 2/5. MMSE score: 21. Cranial NervesCN II: Visual acuity is normal. CN III, IV, : Extraocular movements intact bilaterally. Pupils equal round and reactive to light bilaterally. CN VII: Full and symmetric facial movement. CN XII: Tongue midline without atrophy or fasciculations. MotorStrength is 5/5 throughout all four extremities. SensoryLight touch is normal in upper and lower extremities. Temperature is normal in upper and lower extremities. Vibration is normal in upper and lower extremities. ReflexesDeep tendon reflexes: Symmetric. GaitCasual gait is normal including stance, stride, and arm swing. Results for orders placed or performed in visit on 05/27/24 Apolipoprotein E (ApoE) Isoform, Plasma AD-Detect Collection Time: 05/27/24 2:26 PM Result Value Ref Range QUEST AD DETECT(R) APOE ISOFORM E3/E4 MRI brain wo IV contrast Result Date: 06/06/2024 PROCEDURE INFORMATION: Exam: MR Head Without Contrast Exam date and time: 06/06/2024 7:15 AM Age: 74 years old Clinical indication: Dementia in other diseases classified elsewhere, unspecified severity, without behavioral disturbance, psychotic disturbance, mood disturbance, and anxiety; Alzheimer's disease with late onset; Additional info: Alzheimer's eval for [facility] TECHNIQUE: Imaging protocol: Magnetic resonance imaging of the head without contrast. COMPARISON: No relevant prior studies available. FINDINGS: Brain: Laura white interfaces are maintained. No acute infarct, hemorrhage, mass, edema, midline shift or herniation. Moderate volume loss with involvement of the mesial temporal lobes. Provided history of Alzheimer's. No new T2 signal abnormalities or edema. No evidence of microhemorrhages or superficial siderosis. No evidence of subdural or sulcal fluid collections. No imaging findings to suggest drug-induced amyloid-related imaging abnormalities. Cerebral ventricles: Unremarkable for age. Bones: Unremarkable. Paranasal sinuses: Normal as visualized. No acute sinusitis. Mastoid air cells: Normal as visualized. No mastoid effusion. Orbital cavities: Unremarkable. Vasculature: Central major flow voids appear maintained within the limitations. Soft tissues: Unremarkable. No MR findings of drug-induced amyloid-related imaging abnormalities. ELECTRONICALLY SIGNED BY IVONNE WELSH MD ON 06/06/2024 AT 08:32. Assessment & PlanDiagnoses and all orders for this visit: Late onset Alzheimer's disease without behavioral disturbance (HCC) Other orders - Lecanemab-irmb (Leqembi) 500 MG/5ML solution; Infuse 9.2 mL into a venous catheter every 14 days. Continue the Aricept, start Lecanemab 920 mg every 2 weeks. Risks, benefits, side effects reviewed with patient. Time: 35 minutes I am the continuing focal point for needed health care services and medicalcare services that are part of ongoing care related to this patient's single, serious condition or complex condition. [id number] 17:22:02Upcoming Encounters Health Maintenance Due Date Last Done Comments Bone Density Scan 1951 CT Colonography 1951 Colonoscopy 1951 Colorectal Cancer Screening 1951 FIT-DNA 1951 FIT 1951 FOBT 1951 Lipid Panel 1950 Medicare Annual Wellness (AWV) 1951 Sigmoidoscopy 1951 DTaP/Tdap/Td Vaccines (1 - Tdap) 1970 Mammogram 1991 Pneumococcal Vaccine: 50+ Ye ars (1 of 1 - PCV) 2001 Zoster Vaccines (2 of 2) 03/09/2022 01/12/2022 Influenza Vaccine (#1) 2023 Respiratory Syncytial Virus (RSV) or >=60 (1 - 1-dose 75+ series) 2026 HIB Vaccines Aged Out No longer eligi ble based on patient's age to complete this topic HPV Vaccines Aged Out No longer eligi ble based on patient's age to complete this topic Hepatitis A Vaccines Aged Out No long er eligible based on patient's age to complete this topic Hepatitis B Vaccines Aged Out No long er eligible based on patient's age to complete this topic IPV Vaccines Aged Out No longer eligi ble based on patient's age to complete this topic Meningococcal Vaccine Aged Out No carrington hannah eligible based on patient's age to complete this topic Rotavirus Vaccines Aged Out No longer eligible based on patient's age to complete this topic [facility] [id number] 17:22:02 Diagnosis Late onset Alzheimer's disea se without behavioral disturbance (HCC) - Primary [id number] 17:22:02 [facility] [id number] 17:17:35* Imaging (Routine) - Authorized Specialty Diagnoses / Procedures [facility] Referred To Contact Radiology Diagnoses Late onset Alzheimer's disease without behavioral disturbance (HCC) Procedures MRI brain wo IV contrast Andriy Montiel MD [address] [place] [address] Phone: tel: fax: Referral ID Status Reason Start Date Expiration Date V isits Requested Visits Authorized [id number] Authorized 05/27/2024 11/23/2024 1 1 ICE ORDER DISPATCHER* Imaging (Routine) - Authorized Specialty Diagnoses / Procedures Referred By Contac t Referred To Contact Radiology Diagnoses Late onset Alzheimer's disease without behavioral disturbance (HCC) Abnormal brain scan Procedures PET/CT brain Andriy Montiel MD [address] [place] [address] Phone: tel: fax: Referral ID Status Reason Start Date Expiration Date V isits Requested Visits Authorized [id number] Authorized 05/27/2024 11/23/2024 3 3 ICE ORDER DISPATCHER [facility] [id number] 17:17:35* [facility] [id number] 17:17:35* Andriy Montiel MD - 05/27/2024 9:30 AM SERVICE ORDER DISPATCHER History of Present Illness HPI More confused in the evening. Still driving. Can make coffee. MMSE has dropped from 26 a year ago to 21 today. Still a candidate for monoclonal antibody therapy potentially. Reviewed that with patient and her , genetic counseling performed will check ApoE4 genetic status, amyloid scan and new baseline MRI Allergies as of 05/27/2024 (No Known Allergies) has a current medication list which includes the following prescription(s): donepezil, ezetimibe, hyoscyamine, levothyroxine, and metoprolol tartrate. Vitals:05/27/24 0947 BP: 115/76 Pulse: 58 Resp: 16 Temp: 36.2 ?C (97.2 ?F) SpO2: 97% Neurological Exam Mental Status Awake and alert. Recalls 3 of 3 objects immediately. At 5 minutes recalls 0 of 3 objects. Recalls 1 of 3 objects with prompting. Speech is normal. Able to name objects and name parts of objects. Difficulty spelling words backwards. 2/5. MMSE score: 21. Cranial NervesCN II: Visual acuity is normal. CN III, IV, : Extraocular movements intact bilaterally. Pupils equal round and reactive to light bilaterally. CN VII: Full and symmetric facial movement. CN XII: Tongue midline without atrophy or fasciculations. MotorStrength is 5/5 throughout all four extremities. SensoryLight touch is normal in upper and lower extremities. Temperature is normal in upper and lower extremities. Vibration is normal in upper and lower extremities. ReflexesDeep tendon reflexes: Symmetric. GaitCasual gait is normal including stance, stride, and arm swing. Results for orders placed or performed in visit on 05/09/23 Ceruloplasmin Collection Time: 05/09/23 11:12 AM Result Value Ref Range Ceruloplasmin 31 18 - 53 mg/dL Copper Level Collection Time: 05/09/23 11:12 AM Result Value Ref Range Copper Lvl 119 70 - 175 mcg/dl Sedimentation Rate Collection Time: 05/09/23 11:12 AM Result Value Ref Range Sed Rate 6 < OR = 30 mm/hr C-Reactive Protein Collection Time: 05/09/23 11:12 AM Result Value Ref Range C-Reactive Protein 1.5 <8.0 mg/L Vitamin B1 Level Collection Time: 05/09/23 11:12 AM Result Value Ref Range Vitamin B1 158 78 - 185 mmol/L Vitamin B12 Level Collection Time: 05/09/23 11:12 AM Result Value Ref Range Vitamin B12 Lvl 468 200 - 1,100 pg/mL Beta-Amyloid 42/40 Ratio (Qst) Collection Time: 05/09/23 11:12 AM Result Value Ref Range ABeta 40 337 pg/mL ABeta 42/40 Ratio 0.151 > OR = 0.170 ABeta 42 51 pg/mL No MRI head results found for the past 12 months Assessment & PlanDiagnoses and all orders for this visit: Late onset Alzheimer's disease without behavioral disturbance (HCC) - Apolipoprotein E (ApoE) Isoform, Plasma AD-Detect; Future - PET/CT brain; Future - MRI brain wo IV contrast; Future Abnormal brain scan - PET/CT brain; Future Check ApoE4 status, new baseline MRI and amyloid PET scan Time: 35 minutes I am the continuing focal point for needed health care services and medicalcare services that are part of ongoing care related to this patient's single, serious condition or complex condition. [facility]2025-02-12 17:17:35Upcoming Encounters Scheduled Orders Name Type Priority Associated Diagnoses Orde r Schedule Apolipoprotein E (ApoE) Isoform, Plasma AD-Detect Lab Routine Late onset Alz heimer's disease without behavioral disturbance (HCC) Expected: 05/27/2024 (Approximate), Expires: 05/27/2025 PET/CT brain Imaging Routine Late onset Alzheimer's disease without behavioral disturbance (HCC) Abnormal brain scan Expected: 05/27/2024, Expires: 05/27/2025 MRI brain wo IV contrast Imaging Routine Lat e onset Alzheimer's disease without behavioral disturbance (HCC) Expected: 05/27/2024, Expires: 05/27/2025 Health Maintenance Due Date Last Done Comments Bone Density Scan 1950 CT Colonography 1950 Colonoscopy 1950 Colorectal Cancer Screening 1950 FIT-DNA 1950 FIT 1950 FOBT 1950 Lipid Panel 1950 Medicare Annual Wellness (AWV) 1950 Sigmoidoscopy 1950 Annual Physical 1954 DTaP/Tdap/Td Vaccines (1 - Tdap) 1970 Mammogram 1991 Pneumococcal Vaccine: 65+ Ye ars (1 of 1 - PCV) 2016 Zoster Vaccines (2 of 2) 03/09/2022 01/12/2022 Influenza Vaccine (#1) 2023 Respiratory Syncytial Virus (RSV) or >=60 (1 - 1-dose 75+ series) 2026 HIB Vaccines Aged Out No longer eligi ble based on patient's age to complete this topic HPV Vaccines Aged Out No longer eligi ble based on patient's age to complete this topic Hepatitis A Vaccines Aged Out No long er eligible based on patient's age to complete this topic Hepatitis B Vaccines Aged Out No long er eligible based on patient's age to complete this topic IPV Vaccines Aged Out No longer eligi ble based on patient's age to complete this topic Meningococcal Vaccine Aged Out No carrington hannah eligible based on patient's age to complete this topic Rotavirus Vaccines Aged Out No longer eligible based on patient's age to complete this topic [facility] PasoRbmyxmv4517-05-25 17:17:35 Diagnosis Late onset Alzheimer's disea se without behavioral disturbance (HCC) - Primary Abnormal brain scan Other nonspecific abnormal result of function study of brain and central nervous system [facility] [id number] 17:17:35 [facility] PasoSjofhbi0088-07-00 17:17:34* Imaging (Routine) - Authorized Specialty Diagnoses / Procedures Referred By Contac t Referred To Contact Radiology Diagnoses Late onset Alzheimer's disease without behavioral disturbance (HCC) Procedures MRI brain wo IV contrast Andriy Montiel MD [address] [place] [address] Phone: tel: fax: Referral ID Status Reason Start Date Expiration Date V isits Requested Visits Authorized [id number] Authorized 05/27/2024 11/23/2024 1 1 ICE ORDER DISPATCHER* Imaging (Routine) - Authorized Specialty Diagnoses / Procedures Referred By Contac t Referred To Contact Radiology Diagnoses Late onset Alzheimer's disease without behavioral disturbance (HCC) Abnormal brain scan Procedures PET/CT brain Andriy Montiel MD [address] [place] [address] Phone: tel: fax: Referral ID Status Reason Start Date Expiration Date V isits Requested Visits Authorized [id number] Authorized 05/27/2024 11/23/2024 3 3 ICE ORDER DISPATCHER [facility] [id number] 17:17:34* [facility] [id number] 17:17:34* Andriy Montiel MD - 05/27/2024 9:30 AM SERVICE ORDER DISPATCHER History of Present Illness HPI More confused in the evening. Still driving. Can make coffee. MMSE has dropped from 26 a year ago to 21 today. Still a candidate for monoclonal antibody therapy potentially. Reviewed that with patient and her , genetic counseling performed will check ApoE4 genetic status, amyloid scan and new baseline MRI Allergies as of 05/27/2024 (No Known Allergies) has a current medication list which includes the following prescription(s): donepezil, ezetimibe, hyoscyamine, levothyroxine, and metoprolol tartrate. Vitals:05/27/24 0947 BP: 115/76 Pulse: 58 Resp: 16 Temp: 36.2 ?C (97.2 ?F) SpO2: 97% Neurological Exam Mental Status Awake and alert. Recalls 3 of 3 objects immediately. At 5 minutes recalls 0 of 3 objects. Recalls 1 of 3 objects with prompting. Speech is normal. Able to name objects and name parts of objects. Difficulty spelling words backwards. 2/5. MMSE score: 21. Cranial NervesCN II: Visual acuity is normal. CN III, IV, : Extraocular movements intact bilaterally. Pupils equal round and reactive to light bilaterally. CN VII: Full and symmetric facial movement. CN XII: Tongue midline without atrophy or fasciculations. MotorStrength is 5/5 throughout all four extremities. SensoryLight touch is normal in upper and lower extremities. Temperature is normal in upper and lower extremities. Vibration is normal in upper and lower extremities. ReflexesDeep tendon reflexes: Symmetric. GaitCasual gait is normal including stance, stride, and arm swing. Results for orders placed or performed in visit on 05/09/23 Ceruloplasmin Collection Time: 05/09/23 11:12 AM Result Value Ref Range Ceruloplasmin 31 18 - 53 mg/dL Copper Level Collection Time: 05/09/23 11:12 AM Result Value Ref Range Copper Lvl 119 70 - 175 mcg/dl Sedimentation Rate Collection Time: 05/09/23 11:12 AM Result Value Ref Range Sed Rate 6 < OR = 30 mm/hr C-Reactive Protein Collection Time: 05/09/23 11:12 AM Result Value Ref Range C-Reactive Protein 1.5 <8.0 mg/L Vitamin B1 Level Collection Time: 05/09/23 11:12 AM Result Value Ref Range Vitamin B1 158 78 - 185 mmol/L Vitamin B12 Level Collection Time: 05/09/23 11:12 AM Result Value Ref Range Vitamin B12 Lvl 468 200 - 1,100 pg/mL Beta-Amyloid 42/40 Ratio (Qst) Collection Time: 05/09/23 11:12 AM Result Value Ref Range ABeta 40 337 pg/mL ABeta 42/40 Ratio 0.151 > OR = 0.170 ABeta 42 51 pg/mL No MRI head results found for the past 12 months Assessment & PlanDiagnoses and all orders for this visit: Late onset Alzheimer's disease without behavioral disturbance (HCC) - Apolipoprotein E (ApoE) Isoform, Plasma AD-Detect; Future - PET/CT brain; Future - MRI brain wo IV contrast; Future Abnormal brain scan - PET/CT brain; Future Check ApoE4 status, new baseline MRI and amyloid PET scan Time: 35 minutes I am the continuing focal point for needed health care services and medicalcare services that are part of ongoing care related to this patient's single, serious condition or complex condition. [facility]2025-02-12 17:17:34Upcoming Encounters Scheduled Orders Name Type Priority Associated Diagnoses Orde r Schedule Apolipoprotein E (ApoE) Isoform, Plasma AD-Detect Lab Routine Late onset Alz heimer's disease without behavioral disturbance (HCC) Expected: 05/27/2024 (Approximate), Expires: 05/27/2025 PET/CT brain Imaging Routine Late onset Alzheimer's disease without behavioral disturbance (HCC) Abnormal brain scan Expected: 05/27/2024, Expires: 05/27/2025 MRI brain wo IV contrast Imaging Routine Lat e onset Alzheimer's disease without behavioral disturbance (HCC) Expected: 05/27/2024, Expires: 05/27/2025 Health Maintenance Due Date Last Done Comments Bone Density Scan 1951 CT Colonography 1950 Colonoscopy 1950 Colorectal Cancer Screening 1951 FIT-DNA 1951 FIT 1951 FOBT 1950 Lipid Panel 1950 Medicare Annual Wellness (AWV) 1950 Sigmoidoscopy 1950 Annual Physical 1954 DTaP/Tdap/Td Vaccines (1 - Tdap) 1970 Mammogram 1991 Pneumococcal Vaccine: 65+ Ye ars (1 of 1 - PCV) 2016 Zoster Vaccines (2 of 2) 03/09/2022 01/12/2022 Influenza Vaccine (#1) 2023 Respiratory Syncytial Virus (RSV) or >=60 (1 - 1-dose 75+ series) 2026 HIB Vaccines Aged Out No longer eligi ble based on patient's age to complete this topic HPV Vaccines Aged Out No longer eligi ble based on patient's age to complete this topic Hepatitis A Vaccines Aged Out No long er eligible based on patient's age to complete this topic Hepatitis B Vaccines Aged Out No long er eligible based on patient's age to complete this topic IPV Vaccines Aged Out No longer eligi ble based on patient's age to complete this topic Meningococcal Vaccine Aged Out No carrington hannah eligible based on patient's age to complete this topic Rotavirus Vaccines Aged Out No longer eligible based on patient's age to complete this topic [facility] [id number] 17:17:34 Diagnosis Late onset Alzheimer's disea se without behavioral disturbance (HCC) - Primary Abnormal brain scan Other nonspecific abnormal result of function study of brain and central nervous system [facility] PasoMwxtmur3027-05-20 17:17:34 [facility] [id number] 10:10:10* [facility] PasoKqpppmh5454-68-67 10:10:10* Andriy Montiel MD - 02/20/2024 9:15 AM SERVICE ORDER DISPATCHER History of Present Illness Memory Loss Stable, weight stable, no side effects on the Aricept. Again reviewed medication options. Strong family history of dementia. Patient and both realized that problem will continue to slowly worsen Allergies as of 02/20/2024 (No Known Allergies) has a current medication list which includes the following prescription(s): donepezil, ezetimibe, hyoscyamine, levothyroxine, and metoprolol tartrate. Vitals:02/20/24 0918 BP: 120/73 Pulse: 71 Resp: 16 Temp: 36.1 ?C (97 ?F) SpO2: 96% Neurological Exam Mental Status Awake and alert. Speech is normal. Able to name objects and name parts of objects. Cranial NervesCN II: Visual acuity is normal. CN III, IV, : Extraocular movements intact bilaterally. Pupils equal round and reactive to light bilaterally. CN VII: Full and symmetric facial movement. CN XII: Tongue midline without atrophy or fasciculations. MotorStrength is 5/5 throughout all four extremities. SensoryLight touch is normal in upper and lower extremities. Temperature is normal in upper and lower extremities. Vibration is normal in upper and lower extremities. ReflexesDeep tendon reflexes: Symmetric. GaitCasual gait is normal including stance, stride, and arm swing. Results for orders placed or performed in visit on 05/09/23 Ceruloplasmin Collection Time: 05/09/23 11:12 AM Result Value Ref Range Ceruloplasmin 31 18 - 53 mg/dL Copper Level Collection Time: 05/09/23 11:12 AM Result Value Ref Range Copper Lvl 119 70 - 175 mcg/dl Sedimentation Rate Collection Time: 05/09/23 11:12 AM Result Value Ref Range Sed Rate 6 < OR = 30 mm/hr C-Reactive Protein Collection Time: 05/09/23 11:12 AM Result Value Ref Range C-Reactive Protein 1.5 <8.0 mg/L Vitamin B1 Level Collection Time: 05/09/23 11:12 AM Result Value Ref Range Vitamin B1 158 78 - 185 mmol/L Vitamin B12 Level Collection Time: 05/09/23 11:12 AM Result Value Ref Range Vitamin B12 Lvl 468 200 - 1,100 pg/mL Beta-Amyloid 42/40 Ratio (Qst) Collection Time: 05/09/23 11:12 AM Result Value Ref Range ABeta 40 337 pg/mL ABeta 42/40 Ratio 0.151 > OR = 0.170 ABeta 42 51 pg/mL No MRI head results found for the past 12 months Assessment & PlanDiagnoses and all orders for this visit: Amnestic MCI (mild cognitive impairment with memory loss) Continue Aricept ICE ORDER DISPATCHER [facility] CenterMibnpez2049-76-43 10:10:10Upcoming Encounters Health Maintenance Due Date Last Done Comments Bone Density Scan 1951 CT Colonography 1950 Colonoscopy 1950 Colorectal Cancer Screening 1951 FIT-DNA 1950 FIT 1951 FOBT 1950 Lipid Panel 1950 Medicare Annual Wellness (AWV) 1950 Sigmoidoscopy 1950 Annual Physical 1954 DTaP/Tdap/Td Vaccines (1 - Tdap) 1970 Mammogram 1991 Respiratory Syncytial Virus (RSV) or >=60 (1 - 1-dose 60+ series) 2011 Pneumococcal Vaccine: 65+ Ye ars (1 of 1 - PCV) 2016 Zoster Vaccines (2 of 2) 03/09/2022 01/12/2022 Influenza Vaccine (#1) 2023 HIB Vaccines Aged Out No longer eligi ble based on patient's age to complete this topic HPV Vaccines Aged Out No longer eligi ble based on patient's age to complete this topic Hepatitis A Vaccines Aged Out No long er eligible based on patient's age to complete this topic Hepatitis B Vaccines Aged Out No long er eligible based on patient's age to complete this topic IPV Vaccines Aged Out No longer eligi ble based on patient's age to complete this topic Meningococcal Vaccine Aged Out No carrington hannah eligible based on patient's age to complete this topic Rotavirus Vaccines Aged Out No longer eligible based on patient's age to complete this topic [id number] 10:10:10 Diagnosis Amnestic MCI (mild cognitive impairment with memory loss) - Primary Mild cognitive impairment, so stated [facility] PasoGtxhfiu2345-77-83 10:10:10 [facility] CenterPxdtwof1831-79-94 09:54:17* [facility] CenterLihypme2160-43-99 09:54:17* Andriy Montiel MD - 11/21/2023 9:15 AM CDT Memory Loss Patient reports onset of memory loss was more than 1 year ago. Onset quality is gradual. Symptoms associated with memory loss include changes in short-term memory. Patient lives with spouse. Additional narrative: Some difficulty making a meal No new neurologic problems. No side effects on the medications. No new complaints. Most recent labs and data reviewed. Allergies as of 11/21/2023 (No Known Allergies) has a current medication list which includes the following prescription(s): ezetimibe, hyoscyamine, levothyroxine, metoprolol tartrate, and donepezil. Vitals:11/21/23 0935 BP: 120/80 Pulse: 55 Resp: 16 Temp: 35.9 ?C (96.6 ?F) SpO2: 96% Neurological Exam Mental Status Awake and alert. Speech is normal. Cranial NervesCN II: Visual acuity is normal. CN III, IV, : Extraocular movements intact bilaterally. Pupils equal round and reactive to light bilaterally. CN VII: Full and symmetric facial movement. CN XII: Tongue midline without atrophy or fasciculations. MotorStrength is 5/5 throughout all four extremities. SensoryLight touch is normal in upper and lower extremities. Temperature is normal in upper and lower extremities. Vibration is normal in upper and lower extremities. ReflexesDeep tendon reflexes: Symmetric. GaitCasual gait is normal including stance, stride, and arm swing. Results for orders placed or performed in visit on 05/09/23 Ceruloplasmin Result Value Ref Range Ceruloplasmin 31 18 - 53 mg/dL Copper Level Result Value Ref Range Copper Lvl 119 70 - 175 mcg/dl Sedimentation Rate Result Value Ref Range Sed Rate 6 < OR = 30 mm/hr C-Reactive Protein Result Value Ref Range C-Reactive Protein 1.5 <8.0 mg/L Vitamin B1 Level Result Value Ref Range Vitamin B1 158 78 - 185 mmol/L Vitamin B12 Level Result Value Ref Range Vitamin B12 Lvl 468 200 - 1,100 pg/mL Beta-Amyloid 42/40 Ratio (Qst) Result Value Ref Range ABeta 40 337 pg/mL ABeta 42/40 Ratio 0.151 > OR = 0.170 ABeta 42 51 pg/mL Assessment & PlanAmnestic MCI (mild cognitive impairment with memory loss) Orders:donepezil (Aricept) 10 MG tablet; Take 1 tablet by mouth at bedtime. Stable, continue present medications. [facility]2024-08-08 09:54:17 [place] [id number] 09:54:17 Diagnosis Amnestic MCI (mild cognitive impairment with memory loss) Mild cognitive impairment, so stated [facility] [id number] 09:54:17 Reji Merritt
--- NOTE | 2024-07-21 15:43 | RAD REPORT ---
EXAM: Hand Left 3 View HISTORY: PAIN COMPARISON: None FINDINGS: Bones: Slightly angulated and slightly displaced fracture at the fifth metacarpal at the distal metap hysis. Alignment:Mild angulation at the fifth metacarpal fracture. There is some chronic subluxation at the DIP joint. Degenerative changes:Advanced degenerative changes are present at the DIP joints. Other: n/a IMPRESSION: Acute fifth metacarpal fracture with slight displacement and angulation..
--- NOTE | 2024-07-21 15:59 | EDPHYS ---
Physician Documentation [facility] Name: Trina Diane Age: 74 yrs Sex: Female : 1950 Arrival Date: 07/21/2024 Time: 13:56 Bed Treatment Private MD: ED Physician Juanito Ibarra HPI: 07/21 14:38 This 74 yrs old Female presents to ER via Ambulatory with complaints of Hand Injury. kb 14:38 Patient is a 74-year-old female who presents for left hand pain and bruising that kb started 2 days ago after falling into the bed and twisting her hand. Denies any other injuries or trauma.. Historical: - Allergies: 14:33 No Known Allergies; ap3 - PMHx: 14:33 Hypothyroidism; THYROID CANCER; ap3 - PSHx: 14:33 removal of thyroid; ap3 - Immunization history:: Client reports receiving the 2nd dose of the Covid vaccine, Flu vaccine is up to date. - Infectious Disease History:: Denies. - Social history:: Smoking status: Patient denies any tobacco usage or history of. ROS: 14:38 Constitutional: As per HPI kb Exam: 14:38 Constitutional: This is a well developed, well nourished patient who is awake, alert, kb and in no acute distress. Head/Face: Normocephalic, atraumatic. ENT: Moist Mucous membranes Cardiovascular: Regular rate Respiratory: Respirations even and unlabored. No increased work of breathing. Talking in full sentences Skin: Warm, dry with normal turgor. Normal color. Neuro: Awake and alert, GCS 15, oriented to person, place, time, and situation. 14:38 Musculoskeletal/extremity: Extremities: grossly normal except: noted in the dorsum of left hand and palm of left hand: contusion, ecchymosis, pain, tenderness, ROM: limited active range of motion due to pain, Circulation is intact in all extremities. Sensation intact. Vital Signs: 14:31 Pulse 61; Resp 17; Temp 98.4; Pulse Ox 100% ; Weight 92.53 kg; Pain 6/10; ap3 14:35 BP 155 / 75; ap3 14:31 Pain Scale: Adult ap3 MDM: 14:04 Medical Screening Exam initiated kb 14:39 Differential diagnosis: dislocation, closed fracture, contusion. Data reviewed: vital kb signs, nurses notes. Historians other than the Patient: Spouse/Significant Other: . 15:57 Independent interpretation of the following test(s) in the Emergency Department X-Ray: kb My interpretation is displaced fracture fifth metacarpal left hand. Counseling: I had a detailed discussion with the patient and/or guardian regarding the historical points, exam findings, and any diagnostic results supporting the discharge/admit diagnosis, radiology results, the need for outpatient follow up, a orthopedic surgeon, to return to the emergency department if symptoms worsen or persist or if there are any questions or concerns that arise at home. 07/21 14:32 Order name: Hand Left 3 View XRAY; Complete Time: 15:45 kb 07/21 15:57 Order name: Ulnar Gutter splint; Complete Time: 16:58 kb Administered Medications: No medications were administered Disposition: 17:42 Co-signature as Attending Physician, Juanito Ibarra MD I reviewed the patient's care rn provided by the Advanced Practice Provider and agree with the diagnosis and treatment plan. Disposition Summary: 07/21/24 15:58 Discharge Ordered Notes: Location: Home kb Condition: Stable kb Diagnosis - Displaced fracture of base of fifth metacarpal bone, left hand, initial encounter kb for closed fracture Followup: kb - With: Emergency Department - When: As needed - Reason: Worsening of condition Followup: kb - With: Private Physician - When: 2 - 3 days - Reason: Recheck today's complaints, Continuance of care, Re-evaluation by your physician Discharge Instructions: - Discharge Summary Sheet kb - Metacarpal Fracture, [id number] kb Forms: - Medication Reconciliation Form kb - Antibiotic Education kb - Prescription Opioid Use kb - Patient Portal Instructions kb - Leadership Thank You Letter kb Signatures: Dispatcher [employer] Patricia Renner, CONFIGURATION MANAGEMENT ADMINISTRATOR-C CONFIGURATION MANAGEMENT ADMINISTRATOR-Juanito Mistry MD MD rn Prokisch, Amanda, RN RN ap3
--- NOTE | 2024-07-21 15:59 | ER ---
Nurse's Notes [facility] Name: Trina Diane Age: 74 yrs Sex: Female : 1950 Arrival Date: 07/21/2024 Time: 13:56 Bed Treatment Private MD: Diagnosis: Displaced fracture of base of fifth metacarpal bone, left hand, initial encounter for closed fracture Presentation: 07/21 14:31 Chief complaint: Patient states: she fell two night ago onto the bed and twisted her ap3 left hand. patient currently rates her pain as a 6/10 on the pain scale. Coronavirus screen: At this time, the client does not indicate any symptoms associated with coronavirus-19. Ebola Screen: No symptoms or risks identified at this time. Initial Sepsis Screen: Does the patient meet any 2 criteria? No. Patient's initial sepsis screen is negative. Does the patient have a suspected source of infection? No. Patient's initial sepsis screen is negative. Risk Assessment: Do you want to hurt yourself or someone else? Patient reports no desire to harm self or others. Onset of symptoms was July 19, 2024. 14:31 Method Of Arrival: Ambulatory ap3 14:31 Acuity: ANNA 4 ap3 Triage Assessment: 14:34 General: Appears in no apparent distress. Behavior is calm, cooperative, appropriate ap3 for age. Pain: Complains of pain in left hand. Neuro: Level of Consciousness is awake, alert, obeys commands, Oriented to person, place, time, situation. Cardiovascular: Patient's skin is warm and dry. Respiratory: Airway is patent Respiratory effort is even, unlabored, Respiratory pattern is regular, symmetrical. Musculoskeletal: Reports pain in left hand. Injury Description: fall onto left hand. Historical: - Allergies: 14:33 No Known Allergies; ap3 - PMHx: 14:33 Hypothyroidism; THYROID CANCER; ap3 - PSHx: 14:33 removal of thyroid; ap3 - Immunization history:: Client reports receiving the 2nd dose of the Covid vaccine, Flu vaccine is up to date. - Infectious Disease History:: Denies. - Social history:: Smoking status: Patient denies any tobacco usage or history of. Screenin:35 Abuse screen: Denies threats or abuse. Nutritional screening: No deficits noted. ap3 Tuberculosis screening: No symptoms or risk factors identified. Assessment: 17:11 Neuro: Level of Consciousness is awake, alert, obeys commands, Oriented to person, ss place, time, situation, Denies. Vital Signs: 14:31 Pulse 61; Resp 17; Temp 98.4; Pulse Ox 100% ; Weight 92.53 kg; Pain 6/10; ap3 14:35 BP 155 / 75; ap3 14:31 Pain Scale: Adult ap3 ED Course: 14:02 Patient arrived in ED. al6 14:03 Patricia Wang FNP-C [facility]. kb 14:03 Juanito Ibarra MD is Attending Physician. kb 14:33 Triage completed. ap3 14:35 Patient has correct armband on for positive identification. ap3 14:35 Arm band placed on right wrist. ap3 15:09 Hand Left 3 View XRAY In Process Unspecified. EDMS 17:10 Hansa White, RN is Primary Nurse. ss 17:10 No provider procedures requiring assistance completed. Patient did not have IV access ss during this emergency room visit. Orthoglass splint: Ulnar gutter/Boxer splint applied on left forearm. Administered Medications: No medications were administered Outcome: 15:58 Discharge ordered by MD. kb 17:10 Discharged to home ambulatory, with family, ss 17:10 Condition: good 17:10 Discharge instructions given to patient, significant other, Instructed on discharge instructions, follow up and referral plans. Demonstrated understanding of instructions, follow-up care, splint care, 17:12 Patient left the ED. ss Signatures: Dispatcher [employer] EDMO Patricia Wang FNP-C [employer]-Hansa Li, ADRIAN RN Chely Akbar RN RN ap3 Beth Blandon al6 Corrections: (The following items were deleted from the chart) 14:34 14:31 Chief complaint: Patient states: she fell two night ago onto the bed and twisted ap3 her right hand. patient currently rates her pain as a 6/10 on the pain scale ap3 14:35 14:34 Injury Description: fall onto right hand ap3 ap3
[2024-07-21 17:16] VITALS: TEMP 98.4; O2SAT 100
[2024-07-21 17:17] VITALS: BP 155/75
== END 2024-07-21 17:12 | disposition home or self-care (01) ==
LOC: ER 13:56
DX: S62.317A Displaced fracture of base of fifth metacarpal bone, left hand, initial encounter for closed fracture (principal)
CPT/HCPCS: 99283